=== PATIENT | male | born 1990 | race Caucasian/White ===

== ENCOUNTER 2017-06-30 13:03 | Emergency (ER) | payer OTHER ==
[2017-06-30 13:08] VITALS: BP 145/96; PULSE 95; RESP 18; TEMP 98.1
[2017-06-30] MEDS ORDERED: CLINDAMYCIN 150 MG CAP PO STA (13:22)
[2017-06-30] MEDS ORDERED: MORPHINE SULFATE 10 MG/ML SYRINGE IM STA (13:22)
--- NOTE | 2017-06-30 13:28 | ED ---
ENT HPI - General Chief complaint: Dental/Oral Stated complaint: facial swelling Time Seen by Provider: 06/30/17 13:10 Source: patient Mode of arrival: ambulatory Limitations: no limitations - History of Present Illness Initial comments: this is a 27-year-old male who presents him in [facility] for left-sided facial swelling and pain. He states that it started yesterday. He went to his dentist who stated that he had an infection and was placed on amoxicillin and told to take Motrin for pain. He states he woke up this morning and it seemed like the swelling and pain was worse or he decided come emergency department. He denies any fevers or chills. He states that he does have a cavity in the left upper teeth however can't have a told him to the infection is gone. Denies any difficult he was swallowing or breathing. No other complaints. - Related Data Previous Rx's Medication Instructions Recorded Levofloxacin [Levaquin] 500 mg PO DAILY #9 tab 10/04/16 Promethaz-Cod 6.25-10 mg/5 ml 5 ml PO Q6HR PRN #100 bottle 10/04/16 [Phenergan with Codeine] predniSONE 20 mg PO DAILY #3 tab 10/04/16 Clindamycin HCl [Cleocin] 450 mg PO Q6H #84 cap 06/30/17 HYDROcodone/APAP 5-325MG [[place] 1 tab PO Q6HR PRN #15 tab 06/30/17 5-325] Allergies Allergy/AdvReac Type Severity Reaction Status Date / Time risperidone [From Risperdal] Allergy Confusion Verified 06/30/17 13:08 Review of Systems ROS Statement: Those systems with pertinent positive or pertinent negative responses have been documented in the HPI. ROS Other: All systems not noted in ROS Statement are negative. Past Medical History Past Medical History: Asthma History of Any Multi-Drug Resistant Organisms: None Reported Past Surgical History: No Surgical Hx Reported Past Anesthesia/Blood Transfusion Reactions: No Reported Reaction Past Psychological History: Anxiety, Bipolar, Depression Smoking Status: Former smoker Past Alcohol Use History: Occasional Past Drug Use History: Marijuana - Past Family History Father Family Medical History: Chest Pain / Angina, COPD, Coronary Artery Disease (CAD ) (History of coronary artery disease with [place] and ended up in respiratory failure and passed at age 53. ) Additional Family Medical History / Comment(s): Father has history of major depressive disorder and osteoporosis. Mother Family Medical History: No Reported History (History of osteoporosis. Mother is 54 years old.) Sister(s) Family Medical History: No Reported History (Patient has sister with alcohol syndrome.) Brother(s) Family Medical History: No Reported History (He has one brother with no medical problems.) Daughter(s) Family Medical History: No Reported History (Patient has 2 children one is autistic.) General Exam - General Exam Comments Initial Comments: Constitutional: [Awake alert] [Appears comfortable] Head: [Normocephalic atraumatic] Eyes: [no conjunctival injection] [No scleral icterus] [EOMI] ENT: There is swelling along the left cheek with tenderness to palpation along the left cheek as well. Mild erythema, there is some gingival erythema around the left first molar with an associated Skylar. No abscess was palpated. Neck: [No JVD] [Supple] Heart: [Regular rate rhythm] [normal S1-S2] [no murmurs] Lungs: [Clear to auscultation bilaterally] [No wheezing] [No rales] Abdomen: [Soft] [nondistended] [nontender] Extremities: [Non edematous] [DP pulses intact] [Radial pulses intact] Neuro: [A&Ox3] [No focal neurologic deficits] Psych: [Appropriate mood and affect] Limitations: no limitations Course Vital Signs 06/30/17 13:06 Temperature 98.1 F Pulse Rate 95 Respiratory 18 Rate Blood Pressure 145/96 O2 Sat by Pulse 100 Oximetry Medical Decision Making - Medical Decision Making this is a 27-year-old male who presents emergency department for left-sided facial swelling. He appears to have facial cellulitis with associated gingivitis of the left first molar upper. The patient was given a dose of morphine were department with improvement in his pain. Going to send him home on clindamycin and [place] that he can use. He can follow-up with his dentist as needed. He can return emergency Department if he feels like the swelling is getting worse. Disposition Clinical Impression: Facial cellulitis Disposition: HOME SELF-CARE Condition: Stable Instructions: Dental Caries (ED), Periorbital Cellulitis in Adults (ED) Prescriptions: Clindamycin HCl [Cleocin] 450 mg PO Q6H #84 cap HYDROcodone/APAP 5-325MG [[place] 5-325] 1 tab PO Q6HR PRN #15 tab PRN Reason: Pain Referrals: Gold Maier MD [Primary Care Provider] - 1-2 days
== END 2017-06-30 13:45 | disposition home or self-care (01) ==
LOC: EC 13:03
DX: L03.211 Cellulitis of face (principal); K05.10 Chronic gingivitis, plaque induced; K02.9 Dental caries, unspecified; Z87.891 Personal history of nicotine dependence; Z88.8 Allergy status to other drugs, medicaments and biological substances
CPT/HCPCS: 99283; 96372; J2270

== ENCOUNTER 2017-08-10 16:43 | Emergency (ER) | payer OTHER ==
[2017-08-10 16:54] VITALS: RESP 18
[2017-08-10] MEDS ORDERED: diphenhydrAMINE 50 MG/ML 1 ML VIAL IVP STA (17:16)
[2017-08-10] MEDS ORDERED: ONDANSETRON 4 MG/2 ML VIAL IVP STA (17:16)
[2017-08-10] MEDS ORDERED: PANTOPRAZOLE 40 MG/10 ML VIAL IVP STA (17:16)
[2017-08-10] MEDS ORDERED: KETOROLAC 30 MG/ML 1 ML VIAL IVP STA (17:16)
[2017-08-10] MEDS ORDERED: SODIUM CHLORIDE 0.9% 1,000 ML IV STA ×2 (17:16)
[2017-08-10] MEDS ORDERED: MAG HYDROX/AL HYDROX/SIMETH 30 ML, HYOSCYAMINE ELIXIR 10 ML, CIMETIDINE HCL 300 MG, LID... PO STA ×4 (17:17)
--- NOTE | 2017-08-10 17:20 | ED ---
Abdominal Pain HPI - General Chief Complaint: Abdominal Pain Stated Complaint: asthma attack Time Seen by Provider: 08/10/17 17:06 Source: patient, RN notes reviewed, old records reviewed Mode of arrival: ambulatory Limitations: no limitations - History of Present Illness Initial Comments: Physical is a 27-year-old male presents emergency Department with multiple complaints, patient reports that over the past week he's had occasional episodes with difficulty breathing in the middle the night but then it seems to subside. Patient reports that seems to be fine at this time. Patient states that he over the past 3 days has been having severe nausea and vomiting. Patient states that he has some left upper quadrant abdominal pain as well. Denies any fever or chills. He reports that he try to eat[place] an hour ago and it came right back up. Patient also reports these symptoms and swelling over his right testicle been going on for a year but seems to be somewhat bigger over the past month. Patient states that occasionally is painful. - Related Data Home Medications Medication Instructions Recorded Confirmed Albuterol Sulfate [Proair Hfa] 1 - 2 puff INHALATION RT-Q6H PRN 08/10/17 Previous Rx's Medication Instructions Recorded Omeprazole 40 mg PO DAILY #20 capsule. 08/10/17 Ondansetron Odt [Zofran Odt] 4 mg PO Q8HR PRN #12 tab 08/10/17 Allergies Allergy/AdvReac Type Severity Reaction Status Date / Time risperidone [From Risperdal] Allergy Confusion Verified 08/10/17 18:39 Review of Systems ROS Statement: Those systems with pertinent positive or pertinent negative responses have been documented in the HPI. ROS Other: All systems not noted in ROS Statement are negative. Past Medical History Past Medical History: Asthma History of Any Multi-Drug Resistant Organisms: None Reported Past Surgical History: No Surgical Hx Reported Past Anesthesia/Blood Transfusion Reactions: No Reported Reaction Past Psychological History: Anxiety, Bipolar, Depression Smoking Status: Former smoker Past Alcohol Use History: Occasional Past Drug Use History: Marijuana - Past Family History Father Family Medical History: Chest Pain / Angina, COPD, Coronary Artery Disease (CAD ) (History of coronary artery disease with [place] and ended up in respiratory failure and passed at age 53. ) Additional Family Medical History / Comment(s): Father has history of major depressive disorder and osteoporosis. Mother Family Medical History: No Reported History (History of osteoporosis. Mother is 54 years old.) Sister(s) Family Medical History: No Reported History (Patient has sister with alcohol syndrome.) Brother(s) Family Medical History: No Reported History (He has one brother with no medical problems.) Daughter(s) Family Medical History: No Reported History (Patient has 2 children one is autistic.) General Exam - General Exam Comments Initial Comments: His is a 27-year-old male. No distress. Limitations: no limitations General appearance: alert, in no apparent distress Head exam: Present: atraumatic, normocephalic, normal inspection Eye exam: Present: normal appearance ENT exam: Present: normal exam, mucous membranes moist Neck exam: Present: normal inspection. Absent: tenderness, meningismus, lymphadenopathy Respiratory exam: Present: normal lung sounds bilaterally. Absent: respiratory distress, wheezes, rales, rhonchi, stridor Cardiovascular Exam: Present: regular rate, normal rhythm, normal heart sounds. Absent: systolic murmur, diastolic murmur, rubs, gallop, clicks GI/Abdominal exam: Present: soft, tenderness (LUQ pain), normal bowel sounds. Absent: distended, guarding, rebound, rigid exam: Present: scrotal swelling (minor swelling noted to left anterior testicular pole). Absent: normal inspection Extremities exam: Present: normal inspection, full ROM, normal capillary refill. Absent: tenderness, pedal edema, joint swelling, calf tenderness Back exam: Present: normal inspection, full ROM Neurological exam: Present: alert, oriented X3, CN II-XII intact Psychiatric exam: Present: normal affect, normal mood Skin exam: Present: warm, dry, intact, normal color. Absent: rash Course Vital Signs 08/10/17 16:50 Temperature 97.5 F L Pulse Rate 75 Respiratory 18 Rate Blood Pressure 118/76 O2 Sat by Pulse 97 Oximetry Medical Decision Making - Medical Decision Making 27-year-old male presents emergency department with multiple complaints including episodic epigastric abdominal pain, nausea and vomiting and occasional shortness of breath while sleeping. He has no shortness breath or chest pain at this time. Patient is given IV fluids and laboratory obtained. Patient's labwork was reviewed and unremarkable. Patient received a GI cocktail reports that his pain is feeling better at this time. He also does complain of some swelling over his left testicle. Patient ultrasound shows evidence of the left epididymal cyst which is been stable. No evidence of torsion. At this time patient is reevaluated states that he is feeling better. He will be discharged with nausea medicine and advised to follow-up with primary care provider. Discussed following up with urologist as well and regards epididymal cyst. Patient agrees to treatment plan will comply. Return parameters were discussed. - Lab Data Result diagrams: 08/10/17 17:30 08/10/17 17:30 Lab Results 08/10/17 08/10/17 08/10/17 Range/Units 17:30 17:30 17:30 WBC 12.6 H (3.8-10.6) k/uL RBC 5.56 (4.30-5.90) m/uL Hgb 16.4 (13.0-17.5) gm/dL Hct 47.9 (39.0-53.0) % MCV 86.1 (80.0-100.0) fL MCH 29.6 (25.0-35.0) pg MCHC 34.3 (31.0-37.0) g/dL RDW 12.2 (11.5-15.5) % Plt Count 275 (150-450) k/uL Neutrophils % 80 % Lymphocytes % 13 % Monocytes % 5 % Eosinophils % 2 % Basophils % 0 % Neutrophils # 10.1 H (1.3-7.7) k/uL Lymphocytes # 1.6 (1.0-4.8) k/uL Monocytes # 0.6 (0-1.0) k/uL Eosinophils # 0.2 (0-0.7) k/uL Basophils # 0.0 (0-0.2) k/uL PT 11.8 (9.0-12.0) sec INR 1.2 H (<1.2) APTT 25.6 (22.0-30.0) sec Sodium 144 (137-145) mmol/L Potassium 4.2 (3.5-5.1) mmol/L Chloride 102 (98-107) mmol/L Carbon Dioxide 27 (22-30) mmol/L Anion Gap 15 mmol/L BUN 11 (9-20) mg/dL Creatinine 0.92 (0.66-1.25) mg/dL Est GFR (MDRD) Af Amer >60 (>60 ml/min/1.73 sqM) Est GFR (MDRD) Non-Af >60 (>60 ml/min/1.73 sqM) Glucose 83 (74-99) mg/dL Calcium 10.0 (8.4-10.2) mg/dL Total Bilirubin 0.6 (0.2-1.3) mg/dL AST 30 (17-59) U/L ALT 29 (21-72) U/L Alkaline Phosphatase 69 (38-126) U/L Total Protein 8.6 H (6.3-8.2) g/dL Albumin 5.2 H (3.5-5.0) g/dL Amylase 34 (30-110) U/L Lipase 285 (23-300) U/L Urine Color Urine Appearance (Clear) Urine pH (5.0-8.0) Ur Specific [place] (1.001-1.035) Urine Protein (Negative) Urine Glucose (UA) (Negative) Urine Ketones (Negative) Urine Blood (Negative) Urine Nitrite (Negative) Urine Bilirubin (Negative) Urine Urobilinogen (<2.0) mg/dL Ur Leukocyte Esterase (Negative) Urine RBC (0-5) /hpf Urine WBC (0-5) /hpf Urine Mucus (None) /hpf 08/10/17 Range/Units 18:48 WBC (3.8-10.6) k/uL RBC (4.30-5.90) m/uL Hgb (13.0-17.5) gm/dL Hct (39.0-53.0) % MCV (80.0-100.0) fL MCH (25.0-35.0) pg MCHC (31.0-37.0) g/dL RDW (11.5-15.5) % Plt Count (150-450) k/uL Neutrophils % % Lymphocytes % % Monocytes % % Eosinophils % % Basophils % % Neutrophils # (1.3-7.7) k/uL Lymphocytes # (1.0-4.8) k/uL Monocytes # (0-1.0) k/uL Eosinophils # (0-0.7) k/uL Basophils # (0-0.2) k/uL PT (9.0-12.0) sec INR (<1.2) APTT (22.0-30.0) sec Sodium (137-145) mmol/L Potassium (3.5-5.1) mmol/L Chloride (98-107) mmol/L Carbon Dioxide (22-30) mmol/L Anion Gap mmol/L BUN (9-20) mg/dL Creatinine (0.66-1.25) mg/dL Est GFR (MDRD) Af Amer (>60 ml/min/1.73 sqM) Est GFR (MDRD) Non-Af (>60 ml/min/1.73 sqM) Glucose (74-99) mg/dL Calcium (8.4-10.2) mg/dL Total Bilirubin (0.2-1.3) mg/dL AST (17-59) U/L ALT (21-72) U/L Alkaline Phosphatase (38-126) U/L Total Protein (6.3-8.2) g/dL Albumin (3.5-5.0) g/dL Amylase (30-110) U/L Lipase (23-300) U/L Urine Color Yellow Urine Appearance Clear (Clear) Urine pH 8.5 H (5.0-8.0) Ur Specific [place] 1.023 (1.001-1.035) Urine Protein 1+ H (Negative) Urine Glucose (UA) Negative (Negative) Urine Ketones Negative (Negative) Urine Blood Negative (Negative) Urine Nitrite Negative (Negative) Urine Bilirubin Negative (Negative) Urine Urobilinogen <2.0 (<2.0) mg/dL Ur Leukocyte Esterase Negative (Negative) Urine RBC <1 (0-5) /hpf Urine WBC 1 (0-5) /hpf Urine Mucus Rare H (None) /hpf - Radiology Data Radiology results: report reviewed Testicular torsion is not evident. Evidence of bilateral hydroceles. Evidence of left epididymal cyst. Left epididymal cyst measures 1.2 x 1.5 x 1.4 cm. KUB was reviewed and negative for any obstructive bowel gas pattern. Disposition Clinical Impression: Epididymal cyst, Gastritis, Nausea Disposition: HOME SELF-CARE Condition: Good Instructions: Gastritis (ED) Additional Instructions: Patient advised to follow-up with urologist. Patient advised to have a clear liquid diet for the next 2 days. Return to emergency department if any alarming signs or symptoms occur. Follow-up with primary Care provider as well. Prescriptions: Omeprazole 40 mg PO DAILY #20 capsule. Ondansetron Odt [Zofran Odt] 4 mg PO Q8HR PRN #12 tab PRN Reason: Nausea Referrals: Gold Maier MD [Primary Care Provider] - 1-2 days Martinez Webb MD [STAFF PHYSICIAN] - 1-2 days Time of Disposition: 19:11
[2017-08-10 17:41] LABS: Basophils % (A) 0 %; CH 30.2; CHCM 35.2; Eosinophils # (A) 0.2 k/uL (0-0.7); Eosinophils % (A) 2 %; HCT 47.9 % (39.0-53.0); HDW 2.56; HGB 16.4 gm/dL (13.0-17.5); Luc # (Auto) 0.14; Luc % (Auto) 1; Lymphocytes # (A) 1.6 k/uL (1.0-4.8); Lymphocytes % (A) 13 %; MCH 29.6 pg (25.0-35.0); MCHC 34.3 g/dL (31.0-37.0); MCV 86.1 fL (80.0-100.0); Mean Platelet Volume 6.9; Monocytes # (A) 0.6 k/uL (0-1.0); Monocytes % (A) 5 %; Neutrophils # (A) 10.1 k/uL (1.3-7.7); Neutrophils % (A) 80 %; RBC 5.56 m/uL (4.30-5.90); RDW 12.2 % (11.5-15.5); WBC 12.6 k/uL (3.8-10.6); WBC (Perox) 11.83
[2017-08-10 17:56] LABS: INR 1.2 (<1.2); Partial Thromboplastin Time 25.6 sec (22.0-30.0); Prothrombin Time 11.8 sec (9.0-12.0)
[2017-08-10 18:10] LABS: ALT 29 U/L (21-72); AST 30 U/L (17-59); Alkaline Phosphatase 69 U/L (38-126); Amylase 34 U/L (30-110); Anion Gap 15 mmol/L; Blood Urea Nitrogen 11 mg/dL (9-20); Carbon Dioxide 27 mmol/L (22-30); Chloride 102 mmol/L (98-107); Glucose 83 mg/dL (74-99); Non-African American GFR(MDRD) >60 (>60 ml/min/1.73 sqM); Potassium 4.2 mmol/L (3.5-5.1); Sodium 144 mmol/L (137-145); Total Bilirubin 0.6 mg/dL (0.2-1.3); Total Protein 8.6 g/dL (6.3-8.2)
--- NOTE | 2017-08-10 18:11 | XR ---
Abdomen HISTORY: Pain Frontal view of the abdomen on 2 images No comparisons Lung bases are clear. No bowel obstruction or pneumoperitoneum evident. No evident pathologic calcifi cation IMPRESSION: Nonobstructive bowel gas pattern
--- NOTE | 2017-08-10 18:47 | US ---
EXAMINATION TYPE: US scrotum with doppler. Grayscale and color Doppler Duplex imaging performed of t he scrotum. DATE OF EXAM: 08/10/2017 COMPARISON: Previous dated 07/15/2016 CLINICAL HISTORY: Pain. Pain x 1 year EXAM MEASUREMENTS: TESTICLES: Right Testicle: 3.7 x 2.2 x 4.8 cm Left Testicle: 4.7x 2.5 x 4.5 cm EPIDIDYMIS HEAD: Right Epididymis: 0.6 x 0.6 x0.9 cm Left Epididymis: 0.7 x 0.9 x 0.8 cm Doppler performed to assess for testicular vascularity; good bilateral color flow and waveforms are s een. There is no evidence of testicular torsion. Presence of hydroceles: Yes bilateral Presence of varicoceles: No Left epididymal cyst seen measuring 1.2 x 1.5 x 1.4cm Bilateral normal color doppler flow visualized IMPRESSION: Testicular torsion is not evident. Bilateral hydroceles. Left epididymal cyst.
[2017-08-10 19:00] LABS: Appearance,Urine Clear (Clear); Bilirubin,Urine Negative (Negative); Glucose,Urine (UA) Negative (Negative); Ketones,Urine Negative (Negative); Leukocyte Esterase,Urine Negative (Negative); Mucus,Urine Rare /hpf; Nitrite,Urine Negative (Negative); PH, Urine 8.5 (5.0-8.0); Particle Count 3660; Protein,Urine 1+ (Negative); RBC,Urine <1 /hpf (0-5); Specific Gravity,Urine 1.023 (1.001-1.035); UA Billing (MACRO vs. MICRO) MICRO; Urobilinogen,Urine <2.0 mg/dL (<2.0); WBC,Urine 1 /hpf (0-5)
[2017-08-10] MEDS ORDERED: ONDANSETRON 4 MG ODT STARTER PACK 2 TAB BTL PO STA (19:11)
[2017-08-10 19:21] VITALS: BP 119/56; PULSE 67; TEMP 98.2
== END 2017-08-10 19:21 | disposition home or self-care (01) ==
LOC: EC 16:43
DX: K29.70 Gastritis, unspecified, without bleeding (principal); N50.3 Cyst of epididymis; Z87.891 Personal history of nicotine dependence; Z88.8 Allergy status to other drugs, medicaments and biological substances
CPT/HCPCS: 99285 ×2; 96374 ×2; 96375 ×4; 96361 ×3; 36415; 80053; 82150; 83690; 85025; 85610; 85730; 81001; 74000; 93975; 76870; J1200; J2405; J1885; S0119; C9113

== ENCOUNTER 2017-12-06 10:42 | Emergency (ER) | payer OTHER ==
[2017-12-06 11:06] VITALS: TEMP 97
--- NOTE | 2017-12-06 12:05 | ED ---
General Adult HPI - General Chief complaint: Dental/Oral Stated complaint: dental abscess Time Seen by Provider: 12/06/17 11:43 Source: patient, RN notes reviewed Mode of arrival: ambulatory Limitations: no limitations - History of Present Illness Initial comments: 27-year-old male presents emergency Department chief complaint of left-sided pain. Patient has had this dental pain for the past few days. He is on amoxicillin however it seems that it's getting worse. He states he is getting drainage from the left upper gumline. He denies any fever chills he denies any pain radiates into the neck. He denies any difficulty opening or closing the mouth. He states that this is happening in the past and he normally needs a stronger antibiotic. He states that he is here because Motrin and the current antibiotic do not seem to be helping. He denies any other symptoms with this. He denies a fever or chills. Patient denies any recent fever, chills, shortness of breath, chest pain, back pain, abdominal pain, nausea vomiting, numbness or tingling, dysuria or hematuria, constipation or diarrhea, headaches or visual changes, or any other current symptoms. - Related Data Previous Rx's Medication Instructions Recorded Clindamycin [Cleocin] 450 mg PO Q8HR #90 capsule 12/06/17 traMADol HCl [Ultram] 50 mg PO Q6H PRN #20 tab 12/06/17 Allergies Allergy/AdvReac Type Severity Reaction Status Date / Time risperidone [From Risperdal] Allergy Confusion Verified 12/06/17 11:44 Review of Systems ROS Statement: Those systems with pertinent positive or pertinent negative responses have been documented in the HPI. ROS Other: All systems not noted in ROS Statement are negative. Past Medical History Past Medical History: Asthma History of Any Multi-Drug Resistant Organisms: None Reported Past Surgical History: No Surgical Hx Reported Past Anesthesia/Blood Transfusion Reactions: No Reported Reaction Past Psychological History: Anxiety, Bipolar, Depression Smoking Status: Former smoker Past Alcohol Use History: Occasional Past Drug Use History: Marijuana - Past Family History Father Family Medical History: Chest Pain / Angina, COPD, Coronary Artery Disease (CAD ) (History of coronary artery disease with [place] and ended up in respiratory failure and passed at age 53. ) Additional Family Medical History / Comment(s): Father has history of major depressive disorder and osteoporosis. Mother Family Medical History: No Reported History (History of osteoporosis. Mother is 54 years old.) Sister(s) Family Medical History: No Reported History (Patient has sister with alcohol syndrome.) Brother(s) Family Medical History: No Reported History (He has one brother with no medical problems.) Daughter(s) Family Medical History: No Reported History (Patient has 2 children one is autistic.) General Exam Limitations: no limitations General appearance: alert, in no apparent distress Head exam: Present: atraumatic, normocephalic, normal inspection Eye exam: Present: normal appearance, PERRL, EOMI. Absent: scleral icterus, conjunctival injection, periorbital swelling ENT exam: Present: mucous membranes moist, other (Patient does appear to have a dental abscess to the upper left jaw above tooth #13 it is actively draining.) Neck exam: Present: normal inspection. Absent: tenderness, meningismus, lymphadenopathy Respiratory exam: Present: normal lung sounds bilaterally. Absent: respiratory distress, wheezes, rales, rhonchi, stridor Cardiovascular Exam: Present: regular rate, normal rhythm, normal heart sounds. Absent: systolic murmur, diastolic murmur, rubs, gallop, clicks Neurological exam: Present: alert, oriented X3 Psychiatric exam: Present: normal affect, normal mood Skin exam: Present: warm, dry, intact, normal color. Absent: rash Course Vital Signs 12/06/17 11:04 Temperature 97.0 F L Pulse Rate 80 Respiratory 16 Rate Blood Pressure 130/85 O2 Sat by Pulse 99 Oximetry Medical Decision Making - Medical Decision Making 27-year-old male presents emergency department with chief complaint of left- sided dental pain. At this time we did discuss continuing Motrin Tylenol for pain control. We will switch him to clindamycin as well as stronger pain medication. We did discuss return parameters and follow-up and all questions. Patient family stated the Felipe management this plan. They will be discharged home. Disposition Clinical Impression: Dental abscess Disposition: HOME SELF-CARE Condition: Stable Instructions: Dental Abscess (ED) Additional Instructions: Please use medication as discussed. Please follow up with family doctor if symptoms have not improved over the next two days. Please return to the emergency room if your symptoms increase or worsen or for any other concerns. Prescriptions: Clindamycin [Cleocin] 450 mg PO Q8HR #90 capsule traMADol HCl [Ultram] 50 mg PO Q6H PRN #20 tab PRN Reason: Pain Referrals: Gold Maier MD [Primary Care Provider] - 1-2 days Time of Disposition: 12:04
[2017-12-06 12:14] VITALS: BP 153/82; PULSE 76; RESP 18
== END 2017-12-06 12:15 | disposition home or self-care (01) ==
LOC: EC 10:42
DX: K04.7 Periapical abscess without sinus (principal); Z87.891 Personal history of nicotine dependence; Z88.8 Allergy status to other drugs, medicaments and biological substances
CPT/HCPCS: 99282

== ENCOUNTER 2017-12-18 06:41 | Emergency (ER) | payer OTHER ==
--- NOTE | 2017-12-18 07:26 | XR ---
EXAMINATION TYPE: XR elbow complete RT , 3 VIEWS DATE OF EXAM ORDERED: 12/18/2017 HISTORY: Pain. COMPARISON: None. FINDINGS: No fracture, dislocation or joint effusion is identified. IMPRESSION: NO ACUTE OSSEOUS LESION.
--- NOTE | 2017-12-18 07:27 | XR ---
EXAMINATION TYPE: XR lumbar spine 2 or 3V , 3 VIEWS DATE OF EXAM ORDERED: 12/18/2017 HISTORY: Pain. COMPARISON: None. FINDINGS: Vertebral body height and alignment are maintained. There is no spondylolysis or spondylol isthesis. No fractures are seen. The pedicles are intact. IMPRESSION: NO ACUTE OSSEOUS LESION.
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
[2017-12-18 09:26] VITALS: BP 128/81; PULSE 75; RESP 16; TEMP 98
== END 2017-12-18 09:15 | disposition home or self-care (01) ==
LOC: EC 06:41
DX: S50.01XA Contusion of right elbow, initial encounter (principal); S30.0XXA Contusion of lower back and pelvis, initial encounter; S02.5XXA Fracture of tooth (traumatic), initial encounter for closed fracture; R40.2412 Glasgow coma scale score 13-15, at arrival to emergency department; F17.200 Nicotine dependence, unspecified, uncomplicated; Z88.8 Allergy status to other drugs, medicaments and biological substances; V18.4XXA Pedal cycle driver injured in noncollision transport accident in traffic accident, initial encounter
CPT/HCPCS: 72100; 99283

== ENCOUNTER 2018-10-25 16:35 | Emergency (ER) | payer OTHER ==
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
--- NOTE | 2018-10-25 18:47 | XR ---
EXAMINATION TYPE: XR chest 2V DATE OF EXAM: 10/25/2018 COMPARISON: 10/13/2016 HISTORY: Chest pain TECHNIQUE: Frontal and lateral views of the chest are obtained. FINDINGS: Heart and mediastinum are normal lungs are clear. Diaphragm is normal. Bony thorax appears normal. IMPRESSION: Normal chest. No change.
[2018-10-25] MEDS ORDERED: ACETAMINOPHEN TAB 325 MG TAB PO STA (19:24)
[2018-10-25] MEDS ORDERED: ONDANSETRON ODT 4 MG TAB PO STA (19:24)
[2018-10-25 19:57] VITALS: BP 140/95; PULSE 85; RESP 16; TEMP 97.4
== END 2018-10-25 20:22 | disposition home or self-care (01) ==
LOC: EC 16:35
DX: R05 Cough (principal); R06.02 Shortness of breath; R07.89 Other chest pain; R06.2 Wheezing; Z87.891 Personal history of nicotine dependence; Z88.8 Allergy status to other drugs, medicaments and biological substances
CPT/HCPCS: 71046; 93005; 99285

== ENCOUNTER 2019-12-07 17:45 | Observation (INO) | payer OTHER ==
[2019-12-07] MEDS ORDERED: IPRATROPIUM 0.5 MG/2.5 ML NEBU INHALATION STA (18:06)
[2019-12-07] MEDS ORDERED: ALBUTEROL NEBULIZED 2.5 MG/3 ML INHALATION STA (18:06)
[2019-12-07] MEDS ORDERED: DEXAMETHASONE SOD PHOSPHATE 10 MG/ML 1 ML VIAL IM STA (18:07)
[2019-12-07 18:48] VITALS: RESP 18
--- NOTE | 2019-12-07 19:28 | XR ---
EXAMINATION: XR chest 2V DATE AND TIME: 12/07/2019 6:48 PM CLINICAL INDICATION: PHH; difficulty breathing TECHNIQUE: Departmental protocol COMPARISON: 10/25/2018 FINDINGS: The lungs are clear. The pleural spaces are negative. The cardiac silhouette is not enlarged. The remainder of the mediastinal silhouette is unremarkable. The skeletal structures and soft tissues are negative for acute findings. IMPRESSION: NO ACUTE PROCESS.
[2019-12-07] MEDS ORDERED: IPRATROPIUM-ALBUTEROL 3 ML NEB INHALATION PRN (20:52)
[2019-12-07] MEDS ORDERED: AZITHROMYCIN 500 MG TAB PO SCH (21:00)
[2019-12-07 21:22] LABS: ALT 23 U/L (4-49); AST 38 U/L (17-59); African American GFR (CKD) >90 (>60 ml/min/1.73 sqM); Albumin 4.7 g/dL (3.5-5.0); Alkaline Phosphatase 63 U/L (38-126); Anion Gap 8 mmol/L; Blood Urea Nitrogen 8 mg/dL (9-20); Calcium 9.7 mg/dL (8.4-10.2); Carbon Dioxide 24 mmol/L (22-30); Chloride 107 mmol/L (98-107); Glucose 100 mg/dL (74-99); Non-African American GFR(CKD) >90 (>60 ml/min/1.73 sqM); Sodium 139 mmol/L (137-145); Total Bilirubin 0.7 mg/dL (0.2-1.3); Total Protein 7.8 g/dL (6.3-8.2)
[2019-12-07 21:42] VITALS: BP 127/78; PULSE 69; TEMP 97.9
--- NOTE | 2019-12-07 22:18 | ED ---
General Adult HPI - General Chief complaint: Shortness of Breath Stated complaint: SHANTI Time Seen by Provider: 12/07/19 17:56 Source: patient, RN notes reviewed, old records reviewed Mode of arrival: ambulatory Limitations: no limitations - History of Present Illness Initial comments: 29-year-old male history of asthma presenting with 1 week of increasing cough and dyspnea. Cough productive of dark yellow sputum. Patient states he's had multiple admissions and has significant asthma. Patient is currently out of his albuterol. He denies lower extremity pain or swelling. Denies fever or chills. He has had URI symptoms for approximately one week. Denies central chest pain. - Related Data Home Medications Medication Instructions Recorded Confirmed No Known Home Medications 12/07/19 12/07/19 Allergies Allergy/AdvReac Type Severity Reaction Status Date / Time risperidone [From Risperdal] Allergy Confusion/S Verified 12/07/19 21:47 EIZURES Review of Systems ROS Statement: Those systems with pertinent positive or pertinent negative responses have been documented in the HPI. ROS Other: All systems not noted in ROS Statement are negative. Past Medical History Past Medical History: Asthma History of Any Multi-Drug Resistant Organisms: None Reported Past Surgical History: No Surgical Hx Reported Past Anesthesia/Blood Transfusion Reactions: No Reported Reaction Past Psychological History: Anxiety, Bipolar, Depression Smoking Status: Current every day smoker Past Alcohol Use History: Occasional Additional Past Alcohol Use History / Comment(s): Patient was a smoker of 2 pack s per day for 13 years . He does smoke marijuana at least one joint per day area he also drinks beer every other day. . Past alcohol use stopped drinking 6 months ago. Past Drug Use History: Marijuana - Past Family History Father Family Medical History: Chest Pain / Angina, COPD, Coronary Artery Disease (CAD) Additional Family Medical History / Comment(s): Father has history of major depressive disorder and osteoporosis. Mother Family Medical History: No Reported History Sister(s) Family Medical History: No Reported History Brother(s) Family Medical History: No Reported History Daughter(s) Family Medical History: No Reported History General Exam Limitations: no limitations General appearance: alert, in no apparent distress Head exam: Present: atraumatic, normocephalic Eye exam: Present: normal appearance, PERRL ENT exam: Present: normal exam Neck exam: Present: normal inspection. Absent: tenderness, meningismus Respiratory exam: Present: respiratory distress, wheezes, rhonchi, decreased breath sounds Cardiovascular Exam: Present: regular rate, normal rhythm GI/Abdominal exam: Present: soft. Absent: distended, guarding Extremities exam: Present: normal inspection, normal capillary refill. Absent: pedal edema Neurological exam: Present: alert, oriented X3 Psychiatric exam: Present: normal affect, normal mood Skin exam: Present: warm, dry, intact. Absent: cyanosis, diaphoretic Course Vital Signs 12/07/19 12/07/19 12/07/19 17:47 18:13 18:25 Temperature 99.0 F Pulse Rate 91 88 Respiratory 16 20 Rate Blood Pressure 131/75 O2 Sat by Pulse 99 Oximetry 12/07/19 12/07/19 12/07/19 18:47 19:34 21:07 Temperature 98.2 F Pulse Rate 100 87 91 Respiratory 18 18 18 Rate Blood Pressure 119/72 139/74 O2 Sat by Pulse 98 97 Oximetry Medical Decision Making - Medical Decision Making Chest x-ray negative for focal pneumonia. After albuterol, steroids, patient has persistent wheezing and rhonchi throughout. Mild respiratory distress. He will be kept in observation for IV steroids, and albuterol. Case is discussed with the admitting physician who will admit, IV will be established, CBC and CMP will be obtained these are pending. - Lab Data Result diagrams: 12/07/19 20:51 Lab Results 12/07/19 Range/Units 20:51 Sodium 139 (137-145) mmol/L Potassium 4.0 (3.5-5.1) mmol/L Chloride 107 (98-107) mmol/L Carbon Dioxide 24 (22-30) mmol/L Anion Gap 8 mmol/L BUN 8 L (9-20) mg/dL Creatinine 0.77 (0.66-1.25) mg/dL Est GFR (CKD-EPI)AfAm >90 (>60 ml/min/1.73 sqM) Est GFR (CKD-EPI)NonAf >90 (>60 ml/min/1.73 sqM) Glucose 100 H (74-99) mg/dL Calcium 9.7 (8.4-10.2) mg/dL Total Bilirubin 0.7 (0.2-1.3) mg/dL AST 38 (17-59) U/L ALT 23 (4-49) U/L Alkaline Phosphatase 63 (38-126) U/L Total Protein 7.8 (6.3-8.2) g/dL Albumin 4.7 (3.5-5.0) g/dL Disposition Clinical Impression: Asthma with exacerbation Disposition: ADMITTED IP TO THIS HOSP Condition: Stable Is patient prescribed a controlled substance at d/c from ED?: No Decision to Admit Reason: Admit from EC
[2019-12-07] MEDS ORDERED: ZOLPIDEM 5 MG TAB PO STA (22:42)
[2019-12-07 23:04] LABS: Basophils % (A) 0 %; Eosinophils # (A) 0.1 k/uL (0-0.7); Eosinophils % (A) 1 %; HCT 43.3 % (39.0-53.0); HGB 14.7 gm/dL (13.0-17.5); Lymphocytes # (A) 0.8 k/uL (1.0-4.8); Lymphocytes % (A) 8 %; MCH 29.2 pg (25.0-35.0); MCHC 34.1 g/dL (31.0-37.0); MCV 85.7 fL (80.0-100.0); Mean Platelet Volume 8.3; Monocytes # (A) 0.2 k/uL (0-1.0); Monocytes % (A) 2 %; Neutrophils # (A) 8.6 k/uL (1.3-7.7); Neutrophils % (A) 87 %; Platelet Count 320 k/uL (150-450); RBC 5.05 m/uL (4.30-5.90); RDW 12.1 % (11.5-15.5); WBC 9.9 k/uL (3.8-10.6)
[2019-12-08] MEDS ORDERED: methylPREDNISolone SOD SUCCI 125 MG/2 ML VIAL IV SCH
--- NOTE | 2019-12-08 06:19 | HP ---
HISTORY AND PHYSICAL This is a combined history and physical and discharge summary. CHIEF COMPLAINT: Shortness of breath. HISTORY OF PRESENT ILLNESS: This 29-year-old gentleman with a past medical history of multiple medical problems including history of asthma, history of anxiety, bipolar depression, being followed Dr. Rodas in the outpatient setting was complaining of increasing shortness of breath with the shortness of breath going on for several weeks. Apparently the patient has increased shortness of breath especially at night time. Patient wakes up and then has significant shortness of breath and cough and also the patient admitted for further evaluation. There is no history of any fever, rigors. No history of headache, loss of consciousness or seizures at this time. PAST MEDICAL HISTORY: Anxiety, bipolar, depression, history of GERD, history of asthma. MEDICATIONS: Home medications are none. ALLERGIES: RISPERDAL. FAMILY HISTORY: History of COPD, history of CAD, history of depression and osteoporosis. SOCIAL HISTORY: History of alcohol, THC, smoking daily on a daily basis. REVIEW OF SYSTEMS: ENT: No diminished hearing or diminished vision. CARDIOVASCULAR SYSTEM: As mentioned earlier. RESPIRATORY SYSTEM: As mentioned earlier. GI: As mentioned earlier. : No dysuria. NERVOUS SYSTEM: No numbness or weakness. ALLERGY/IMMUNOLOGY: Asthma. MUSCULOSKELETAL: As mentioned earlier. HEMATOLOGY/ONCOLOGY: Anemia. ENDOCRINE : No history of diabetes or hypothyroidism. CONSTITUTIONAL: As mentioned earlier. DERMATOLOGY: Negative. RHEUMATOLOGY: Negative. PSYCHIATRY: As mentioned earlier. PHYSICAL EXAMINATION: The patient is alert and oriented x3. Pulse 91, blood pressure 139/74, respiration 18, temperature 98.2, pulse ox 97% on room air. HEENT: Conjunctivae normal. NECK: No jugular venous distention. CARDIOVASCULAR: S1, S2 muffled. RESPIRATORY: Breath sounds diminished at the bases. Bilateral scattered rhonchi and crackles. ABDOMEN: Soft, nontender. No mass palpable. LEGS: No edema, no swelling. NERVOUS SYSTEM: Higher function as mentioned. Moves all 4 limbs. No focal motor or sensory deficits. LYMPHATICS: No lymphadenopathy of the neck, axillae or groin. SKIN: No ulcer, rash or bleeding. JOINTS: No active deforming arthropathy. LABS: CBC within normal limits and BUN is 8. Glucose is 100. Influenza is negative. ASSESSMENT: 1. Bronchial asthma acute exacerbation of chronic persistent asthma. 2. Possible gastroesophageal reflux disease. 3. Anxiety 4. History of anxiety, bipolar, depression. 5. History of continued nicotine dependence. 6. History of THC. RECOMMENDATIONS AND DISCUSSION: This 29-year-old gentleman who was admitted with multiple complex medical issues, I recommend bronchodilators and the treatment for GERD in the form of Protonix. I would also recommend a small cessation of the THC and continue the home medications, but however the patient left the hospital AGAINST MEDICAL ADVICE shortly after I had seen the patient and made some recommendations. Please refer to staff notes for further details. Prognosis remains extremely guarded because of the patient's noncompliance. A copy of dictation forwarded to Dr. Rodas, who is the primary physician. MMODL / IJN: [id number] / MTDRainer
[2019-12-08] MEDS ORDERED: IPRATROPIUM-ALBUTEROL 3 ML NEB INHALATION SCH (08:00)
== END 2019-12-07 23:00 | disposition home or self-care (01) ==
LOC: EC 17:45 → 1SOBS 20:53
PROVIDERS: ADMIT Hospitalist; ATTEND Hospitalist
DX: J45.901 Unspecified asthma with (acute) exacerbation (principal); F31.9 Bipolar disorder, unspecified; F41.9 Anxiety disorder, unspecified; F17.210 Nicotine dependence, cigarettes, uncomplicated; Z88.8 Allergy status to other drugs, medicaments and biological substances; Z82.49 Family history of ischemic heart disease and other diseases of the circulatory system; Z82.5 Family history of asthma and other chronic lower respiratory diseases; Z81.8 Family history of other mental and behavioral disorders; Z82.62 Family history of osteoporosis
CPT/HCPCS: 96372; 99285; 94640; 80053; 85025; 87502; 71046; G0378; J1100

== ENCOUNTER 2020-03-28 09:38 | Emergency (ER) | payer OTHER ==
[2020-03-28] MEDS ORDERED: FAMOTIDINE 20 MG/2 ML VIAL IV STA (10:05)
[2020-03-28] MEDS ORDERED: SODIUM CHLORIDE 0.9% 1,000 ML IV STA (10:05)
[2020-03-28] MEDS ORDERED: MAG HYDROX/AL HYDROX/SIMETH 30 ML, HYOSCYAMINE ELIXIR 10 ML, LIDOCAINE VISCOUS 2% 10 ML PO STA ×3 (10:05)
[2020-03-28 10:23] LABS: Basophils % (A) 0 %; Eosinophils # (A) 0.4 k/uL (0-0.7); Eosinophils % (A) 3 %; HCT 43.5 % (39.0-53.0); HGB 14.3 gm/dL (13.0-17.5); Lymphocytes # (A) 1.8 k/uL (1.0-4.8); Lymphocytes % (A) 14 %; MCH 28.3 pg (25.0-35.0); MCHC 32.9 g/dL (31.0-37.0); Monocytes # (A) 0.9 k/uL (0-1.0); Monocytes % (A) 7 %; Neutrophils # (A) 9.8 k/uL (1.3-7.7); Neutrophils % (A) 74 %; Platelet Count 256 k/uL (150-450); RBC 5.05 m/uL (4.30-5.90); RDW 12.7 % (11.5-15.5); WBC 13.3 k/uL (3.8-10.6)
--- NOTE | 2020-03-28 10:30 | ED ---
General Adult HPI - General Chief complaint: Abdominal Pain Stated complaint: Upper abd/chest pain Time Seen by Provider: 03/28/20 09:56 Source: patient, RN notes reviewed Mode of arrival: ambulatory Limitations: no limitations - History of Present Illness Initial comments: 29-year-old male with a past medical history of asthma presents to the emergency department for a chief complaint of upper abdominal pain. Patient states that he got off work about 6 hours ago and ate a sandwich. Patient states he had some slight discomfort at that time. Patient states he then drank a full bottle of water and went to bed. He states he woke up about an hour ago and had significant upper abdominal pain. States it feels like he has a sandwich stuck in the area with pressure. It is making him nauseous but denies vomiting.Patient has no other complaints at this time including shortness of breath, chest pain, headache, or visual changes. - Related Data Home Medications Medication Instructions Recorded Confirmed Ascorbic Acid [Vitamin C] 500 mg PO DAILY 03/28/20 03/28/20 Ibuprofen [Motrin] 800 mg PO Q8H PRN 03/28/20 03/28/20 Multivit-Min/Folic/Vit K/Lycop 1 tab PO DAILY 03/28/20 03/28/20 [Men's Multivitamin Tablet] Turmeric Root Extract [Turmeric] 500 mg PO DAILY 03/28/20 03/28/20 Allergies Allergy/AdvReac Type Severity Reaction Status Date / Time risperidone [From Risperdal] Allergy Confusion/S Verified 03/28/20 11:15 EIZURES Review of Systems ROS Statement: Those systems with pertinent positive or pertinent negative responses have been documented in the HPI. ROS Other: All systems not noted in ROS Statement are negative. Past Medical History Past Medical History: Asthma History of Any Multi-Drug Resistant Organisms: None Reported Past Surgical History: No Surgical Hx Reported Past Anesthesia/Blood Transfusion Reactions: No Reported Reaction Past Psychological History: Anxiety, Bipolar, Depression Smoking Status: Current every day smoker Past Alcohol Use History: Occasional Past Drug Use History: Marijuana - Past Family History Father Family Medical History: Chest Pain / Angina, COPD, Coronary Artery Disease (CAD) Additional Family Medical History / Comment(s): Father has history of major depressive disorder and osteoporosis. Mother Family Medical History: No Reported History Sister(s) Family Medical History: No Reported History Brother(s) Family Medical History: No Reported History Daughter(s) Family Medical History: No Reported History General Exam Limitations: no limitations General appearance: alert, in no apparent distress Head exam: Present: atraumatic, normocephalic, normal inspection Eye exam: Present: normal appearance, PERRL, EOMI. Absent: scleral icterus, conjunctival injection, periorbital swelling ENT exam: Present: normal exam, mucous membranes moist Neck exam: Present: normal inspection, full ROM. Absent: tenderness, meningismus, lymphadenopathy Respiratory exam: Present: normal lung sounds bilaterally. Absent: respiratory distress, wheezes, rales, rhonchi, stridor Cardiovascular Exam: Present: regular rate, normal rhythm, normal heart sounds. Absent: systolic murmur, diastolic murmur, rubs, gallop, clicks GI/Abdominal exam: Present: soft, tenderness (tenderness epigastric area), normal bowel sounds. Absent: distended, guarding, rebound, rigid Expanded GI/Abdominal exam: Present: Montiel's sign Course Vital Signs 03/28/20 09:43 Temperature 98.2 F Pulse Rate 71 Respiratory 18 Rate Blood Pressure 152/82 O2 Sat by Pulse 96 Oximetry EKG Findings - EKG Comments: EKG Findings:: EKG shows a normal sinus rhythm with a ventricular rate of 70, NC interval 158, QTC 403 Medical Decision Making - Medical Decision Making Vitals are stable. HPI and physical exam as documented. Pain is reproducible to palpation of the epigastric and right upper quadrant areas. CBC did show mild cytosis. CMP is unremarkable. Lipase of 370 is noted. However this is not 3 times normal limit elevation. X-ray KUB shows an obstructive bowel gas pattern. Gallbladder ultrasound shows no sonographic evidence of acute cholecystitis. However the patient complains of a positive sonographic Montiel sign and there is a long elongation of the gallbladder that can be seen and chr onic biliary dyskinesia. Patient was given pain medication and had significant improvement in pain. At this time patient is stable for follow-up outpatient with surgery. He will return here for any worsening symptoms. - Lab Data Result diagrams: 03/28/20 10:03 03/28/20 10:03 Lab Results 03/28/20 03/28/20 03/28/20 Range/Units 10:03 10:03 10:25 WBC 13.3 H (3.8-10.6) k/uL RBC 5.05 (4.30-5.90) m/uL Hgb 14.3 (13.0-17.5) gm/dL Hct 43.5 (39.0-53.0) % MCV 86.0 (80.0-100.0) fL MCH 28.3 (25.0-35.0) pg MCHC 32.9 (31.0-37.0) g/dL RDW 12.7 (11.5-15.5) % Plt Count 256 (150-450) k/uL Neutrophils % 74 % Lymphocytes % 14 % Monocytes % 7 % Eosinophils % 3 % Basophils % 0 % Neutrophils # 9.8 H (1.3-7.7) k/uL Lymphocytes # 1.8 (1.0-4.8) k/uL Monocytes # 0.9 (0-1.0) k/uL Eosinophils # 0.4 (0-0.7) k/uL Basophils # 0.0 (0-0.2) k/uL Sodium 137 (137-145) mmol/L Potassium 4.2 (3.5-5.1) mmol/L Chloride 107 (98-107) mmol/L Carbon Dioxide 25 (22-30) mmol/L Anion Gap 5 mmol/L BUN 16 (9-20) mg/dL Creatinine 0.76 (0.66-1.25) mg/dL Est GFR (CKD-EPI)AfAm >90 (>60 ml/min/1.73 sqM) Est GFR (CKD-EPI)NonAf >90 (>60 ml/min/1.73 sqM) Glucose 85 (74-99) mg/dL Calcium 9.3 (8.4-10.2) mg/dL Total Bilirubin 0.2 (0.2-1.3) mg/dL AST 24 (17-59) U/L ALT 21 (4-49) U/L Alkaline Phosphatase 50 (38-126) U/L Total Protein 7.1 (6.3-8.2) g/dL Albumin 4.3 (3.5-5.0) g/dL Amylase 33 (30-110) U/L Lipase 370 H (23-300) U/L Urine Color Light Yellow Urine Appearance Clear (Clear) Urine pH 7.0 (5.0-8.0) Ur Specific [place] 1.017 (1.001-1.035) Urine Protein Negative (Negative) Urine Glucose (UA) Negative (Negative) Urine Ketones Negative (Negative) Urine Blood Negative (Negative) Urine Nitrite Negative (Negative) Urine Bilirubin Negative (Negative) Urine Urobilinogen <2.0 (<2.0) mg/dL Ur Leukocyte Esterase Negative (Negative) Disposition Clinical Impression: Abdominal pain Disposition: HOME SELF-CARE Condition: Good Instructions (If sedation given, give patient instructions): Abdominal Pain (ED) Additional Instructions: Please take pain medication as needed. Please follow-up with Gen. surgery in 1- 2 days. Please return here to the emergency department for any worsening symptoms. Is patient prescribed a controlled substance at d/c from ED?: No Referrals: Essence Rodas MD [REFERRING] - 1-2 days Heber Perez MD [Medical Doctor] - 1-2 days Time of Disposition: 12:39
[2020-03-28 10:36] LABS: ALT 21 U/L (4-49); AST 24 U/L (17-59); African American GFR (CKD) >90 (>60 ml/min/1.73 sqM); Albumin 4.3 g/dL (3.5-5.0); Alkaline Phosphatase 50 U/L (38-126); Amylase 33 U/L (30-110); Anion Gap 5 mmol/L; Blood Urea Nitrogen 16 mg/dL (9-20); Calcium 9.3 mg/dL (8.4-10.2); Carbon Dioxide 25 mmol/L (22-30); Chloride 107 mmol/L (98-107); Glucose 85 mg/dL (74-99); Non-African American GFR(CKD) >90 (>60 ml/min/1.73 sqM); Potassium 4.2 mmol/L (3.5-5.1); Sodium 137 mmol/L (137-145); Total Bilirubin 0.2 mg/dL (0.2-1.3); Total Protein 7.1 g/dL (6.3-8.2)
[2020-03-28 10:45] LABS: Appearance,Urine Clear (Clear); Bilirubin,Urine Negative (Negative); Blood,Urine Negative (Negative); Color,Urine Light Yellow; Glucose,Urine (UA) Negative (Negative); Ketones,Urine Negative (Negative); Leukocyte Esterase,Urine Negative (Negative); Nitrite,Urine Negative (Negative); Protein,Urine Negative (Negative); Specific Gravity,Urine 1.017 (1.001-1.035); Urobilinogen,Urine <2.0 mg/dL (<2.0)
--- NOTE | 2020-03-28 10:53 | XR ---
EXAMINATION TYPE: XR KUB DATE OF EXAM: 03/28/2020 10:43 AM CLINICAL HISTORY: Epigastric pain after eating TECHNIQUE: Single upright image of the abdomen is obtained. COMPARISON: None. FINDINGS: Very mild levoscoliosis of the lumbar spine. Osseous structures appear intact and the lung bases are well aerated. No dilated large and small bowel. No suspicious calcification in the abdomen or pelvis. IMPRESSION: Nonobstructive bowel gas pattern.
[2020-03-28] MEDS ORDERED: HYDROmorphone 0.5 MG/0.5 ML SYRINGE IVP STA (11:07)
--- NOTE | 2020-03-28 11:59 | US ---
EXAMINATION TYPE: US gallbladder DATE OF EXAM: 03/28/2020 COMPARISON: NONE CLINICAL HISTORY: pain. RUQ pain, nausea EXAM MEASUREMENTS: Liver Length: 19.1 cm Gallbladder Wall: 0.3 cm CBD: 0.4 cm Right Kidney: 12.2 x 3.9 x 4.9 cm Pancreas: visualized portions appear wnl Liver: wnl Gallbladder: no evidence of stones, size approaches hydropic size of the gallbladder is elongated ga llbladder measures 9.5 cm. Evidence for sonographic Montiel's sign: yes CBD: wnl Right Kidney: cystic area lower pole = 1.2 x 1.3cm IMPRESSION: 1. No sonographic evidence of acute cholecystitis. However the patient complains of a positive sonogr aphic Montiel sign and there is elongation of the gallbladder that can be seen in chronic biliary dysf unction. HIDA scan with CCK could evaluate for biliary dyskinesia. 2. Simple appearing right renal cyst, Bosniak type I, measuring 1.3 cm.
[2020-03-28] MEDS ORDERED: KETOROLAC 30 MG/ML 1 ML VIAL IVP STA (12:25)
[2020-03-28 13:06] VITALS: BP 138/74; PULSE 78; RESP 16; TEMP 97.8
== END 2020-03-28 13:04 | disposition home or self-care (01) ==
LOC: EC 09:38
DX: R10.10 Upper abdominal pain, unspecified (principal); R11.0 Nausea; F17.200 Nicotine dependence, unspecified, uncomplicated; Z88.8 Allergy status to other drugs, medicaments and biological substances
CPT/HCPCS: 36415; 80053; 82150; 83690; 85025; 81003; 74018; 76705; 99284; 96374; 96375 ×2; 96361; J1885; J1170

== ENCOUNTER 2021-09-24 21:49 | Emergency (ER) | payer OTHER ==
--- NOTE | 2021-09-25 01:28 | ED ---
Abdominal Pain HPI - General Chief Complaint: Abdominal Pain Stated Complaint: Hernia Time Seen by Provider: 09/25/21 00:50 Source: patient Mode of arrival: ambulatory Limitations: no limitations - History of Present Illness Initial Comments: This patient is a 31-year-old man who presents to be evaluated for pains in the right lower abdomen/groin. Patient states he is concerned he is developing a hernia. He states that he initially noticed it around a week ago. 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 Patient states that he lifts anything or tenses his abdomen he gets a "goose egg" in the right groin area. Patient denies nausea, vomiting, constipation or problems with passing gas. He states that when he relaxes his abdomen the "goose egg" goes away. Complaint: abdominal pain Onset/Timin -: week(s) Location: RLQ Radiation: none Migration to: no migration Severity: mild Quality: aching Consistency: intermittent Improves With: nothing Worsens With: movement, other Associated Symptoms: denies other symptoms - Related Data Home Medications Medication Instructions Recorded Confirmed Ascorbic Acid [Vitamin C] 500 mg PO DAILY 03/28/20 03/28/20 Ibuprofen [Motrin] 800 mg PO Q8H PRN 03/28/20 03/28/20 Multivit-Min/Folic/Vit K/Lycop 1 tab PO DAILY 03/28/20 03/28/20 [Men's Multivitamin Tablet] Turmeric Root Extract [Turmeric] 500 mg PO DAILY 03/28/20 03/28/20 Previous Rx's Medication Instructions Recorded Acetaminophen-Codeine 300-30mg 1 tab PO Q8H PRN #10 tablet 03/29/20 [Tylenol #3] Allergies Allergy/AdvReac Type Severity Reaction Status Date / Time risperidone [From Risperdal] Allergy Confusion/S Verified 09/24/21 22:46 EIZURES Review of Systems ROS Statement: Those systems with pertinent positive or pertinent negative responses have been documented in the HPI. ROS Other: All systems not noted in ROS Statement are negative. Constitutional: Denies: fever Respiratory: Denies: cough, dyspnea Cardiovascular: Denies: chest pain, palpitations, edema Gastrointestinal: Reports: as per HPI, abdominal pain. Denies: nausea, vomiting, diarrhea, constipation Genitourinary: Denies: dysuria, hematuria, testicular pain, testicular mass Musculoskeletal: Denies: back pain Skin: Denies: rash Past Medical History Past Medical History: Asthma History of Any Multi-Drug Resistant Organisms: None Reported Past Surgical History: Cholecystectomy Past Anesthesia/Blood Transfusion Reactions: No Reported Reaction Past Psychological History: Anxiety, Bipolar, Depression Smoking Status: Current every day smoker Past Alcohol Use History: Occasional Past Drug Use History: Marijuana - Past Family History Father Family Medical History: Chest Pain / Angina, COPD, Coronary Artery Disease (CAD) Additional Family Medical History / Comment(s): Father has history of major depressive disorder and osteoporosis. Mother Family Medical History: No Reported History Sister(s) Family Medical History: No Reported History Brother(s) Family Medical History: No Reported History Daughter(s) Family Medical History: No Reported History General Exam Limitations: no limitations General appearance: alert, in no apparent distress Head exam: Present: atraumatic, normocephalic Eye exam: Present: normal appearance. Absent: scleral icterus, conjunctival injection Respiratory exam: Present: normal lung sounds bilaterally. Absent: respiratory distress, wheezes, rales, rhonchi, stridor Cardiovascular Exam: Present: regular rate, normal rhythm, normal heart sounds. Absent: systolic murmur, diastolic murmur, rubs, gallop GI/Abdominal exam: Present: soft, normal bowel sounds, hernia. Absent: distended, tenderness, guarding, rebound, rigid, mass, pulsatile mass Extremities exam: Present: normal inspection, normal capillary refill. Absent: pedal edema, calf tenderness Neurological exam: Present: alert Skin exam: Present: warm, dry, intact, normal color. Absent: rash Course Vital Signs 09/24/21 22:37 Temperature 97.7 F Pulse Rate 80 Respiratory 19 Rate Blood Pressure 148/76 O2 Sat by Pulse 99 Oximetry Medical Decision Making - Medical Decision Making On exam, the patient does have palpable defect in the abdominal wall. There is no incarceration. No tenderness. We discussed appropriate further care and follow-up. Patient will see the surgeon. We discussed the return parameters discussed no heavy lifting. Disposition Clinical Impression: Hernia Disposition: HOME SELF-CARE Condition: Good Instructions (If sedation given, give patient instructions): Inguinal Hernia (ED) Is patient prescribed a controlled substance at d/c from ED?: No Referrals: None,Stated [Primary Care Provider] - 1-2 days Elisha Salcido MD [STAFF PHYSICIAN] - 1-2 days
[2021-09-25 02:22] VITALS: BP 138/81; PULSE 78; RESP 18; TEMP 97.8
== END 2021-09-25 02:07 | disposition home or self-care (01) ==
LOC: EC 21:49
DX: K46.9 Unspecified abdominal hernia without obstruction or gangrene (principal); J45.909 Unspecified asthma, uncomplicated; F41.9 Anxiety disorder, unspecified; F31.9 Bipolar disorder, unspecified; F17.200 Nicotine dependence, unspecified, uncomplicated; F12.90 Cannabis use, unspecified, uncomplicated; Z72.89 Other problems related to lifestyle
CPT/HCPCS: 99283

== ENCOUNTER 2021-10-04 02:35 | Emergency (ER) | payer OTHER ==
[2021-10-04 02:45] VITALS: BP 125/87; PULSE 86; RESP 16; TEMP 98.5
[2021-10-04 03:30] LABS: Appearance,Urine Clear (Clear); Bilirubin,Urine Negative (Negative); Blood,Urine Negative (Negative); Color,Urine Light Yellow; Glucose,Urine (UA) Negative (Negative); Ketones,Urine Negative (Negative); Leukocyte Esterase,Urine Negative (Negative); Nitrite,Urine Negative (Negative); PH, Urine 5.5 (5.0-8.0); Protein,Urine Negative (Negative); Specific Gravity,Urine 1.007 (1.001-1.035); Urobilinogen,Urine <2.0 mg/dL (<2.0)
[2021-10-04 03:31] LABS: Basophils # (A) 0.1 k/uL (0-0.2); Basophils % (A) 1 %; Eosinophils # (A) 0.4 k/uL (0-0.7); Eosinophils % (A) 4 %; HCT 46.4 % (39.0-53.0); HGB 15.7 gm/dL (13.0-17.5); Lymphocytes # (A) 3.2 k/uL (1.0-4.8); Lymphocytes % (A) 30 %; MCH 29.9 pg (25.0-35.0); MCHC 33.8 g/dL (31.0-37.0); MCV 88.6 fL (80.0-100.0); Mean Platelet Volume 7.8; Monocytes # (A) 0.7 k/uL (0-1.0); Monocytes % (A) 6 %; Neutrophils # (A) 6.2 k/uL (1.3-7.7); Neutrophils % (A) 58 %; Platelet Count 296 k/uL (150-450); RBC 5.24 m/uL (4.30-5.90); RDW 12.3 % (11.5-15.5); WBC 10.7 k/uL (3.8-10.6)
[2021-10-04 03:44] LABS: ALT 22 U/L (4-49); AST 26 U/L (17-59); African American GFR (CKD) >90 (>60 ml/min/1.73 sqM); Albumin 4.8 g/dL (3.5-5.0); Alkaline Phosphatase 65 U/L (38-126); Amylase 41 U/L (30-110); Anion Gap 12 mmol/L; Blood Urea Nitrogen 16 mg/dL (9-20); Calcium 9.9 mg/dL (8.4-10.2); Carbon Dioxide 27 mmol/L (22-30); Chloride 102 mmol/L (98-107); Glucose 95 mg/dL (74-99); Lipase 182 U/L (23-300); Non-African American GFR(CKD) >90 (>60 ml/min/1.73 sqM); Potassium 3.9 mmol/L (3.5-5.1); Sodium 141 mmol/L (137-145); Total Bilirubin 0.3 mg/dL (0.2-1.3); Total Protein 8.1 g/dL (6.3-8.2)
--- NOTE | 2021-10-04 03:56 | CT ---
EXAMINATION TYPE: CT abdomen pelvis wo con DATE OF EXAM: 10/04/2021 COMPARISON: February 23, 2015 HISTORY: right groin pain CT DLP: 429.4 mGycm Automated exposure control for dose reduction was used. Lung bases are clear. There is no pleural effusion. Heart size is normal. There is no pericardial eff usion. Liver spleen stomach pancreas appear intact. The bile ducts are not dilated. There is high density ma terial in the stomach consistent with medication. There is no adrenal mass. Kidneys have normal size and contour. There is 3 mm calculus lateral right kidney. There is no hydronephrosis. Ureters are not dilated. There is no retroperitoneal adenopathy b ladder distends smoothly. There is no inguinal hernia. There is no free fluid in the pelvis. There is no mesenteric edema. There is no ascites or free air. There is no bowel obstruction. Appendi x is lateral and appears normal. Lumbar vertebra have normal alignment. Posterior elements are intact. There is no compression fractur e. Bony pelvis is intact. Hip joints are intact. There is narrowing of L5-S1 disc space. There is 2 c m cortical cyst lower pole left kidney. IMPRESSION: Nonobstructing right renal calculus. Cortical cyst lower pole left kidney is a change compared to old exam. No sign of acute abdomen and pelvis. Normal appendix. No evidence of traumatic injury in the a bdomen pelvis.
--- NOTE | 2021-10-04 04:47 | ED ---
Abdominal Pain HPI - General Chief Complaint: Abdominal Pain Stated Complaint: Abd Pain Time Seen by Provider: 10/04/21 02:50 Source: patient Mode of arrival: ambulatory Limitations: no limitations - Related Data Home Medications Medication Instructions Recorded Confirmed Ascorbic Acid [Vitamin C] 500 mg PO DAILY 03/28/20 03/28/20 Ibuprofen [Motrin] 800 mg PO Q8H PRN 03/28/20 03/28/20 Multivit-Min/Folic/Vit K/Lycop 1 tab PO DAILY 03/28/20 03/28/20 [Men's Multivitamin Tablet] Turmeric Root Extract [Turmeric] 500 mg PO DAILY 03/28/20 03/28/20 Previous Rx's Medication Instructions Recorded Acetaminophen-Codeine 300-30mg 1 tab PO Q8H PRN #10 tablet 03/29/20 [Tylenol #3] Allergies Allergy/AdvReac Type Severity Reaction Status Date / Time risperidone [From Risperdal] Allergy Confusion/S Verified 10/04/21 02:43 EIZURES Review of Systems ROS Statement: Those systems with pertinent positive or pertinent negative responses have been documented in the HPI. ROS Other: All systems not noted in ROS Statement are negative. Past Medical History Past Medical History: Asthma History of Any Multi-Drug Resistant Organisms: None Reported Past Surgical History: Cholecystectomy Past Anesthesia/Blood Transfusion Reactions: No Reported Reaction Past Psychological History: Anxiety, Bipolar, Depression Smoking Status: Current every day smoker Past Alcohol Use History: Occasional Past Drug Use History: Marijuana - Past Family History Father Family Medical History: Chest Pain / Angina, COPD, Coronary Artery Disease (CAD) Additional Family Medical History / Comment(s): Father has history of major depressive disorder and osteoporosis. Mother Family Medical History: No Reported History Sister(s) Family Medical History: No Reported History Brother(s) Family Medical History: No Reported History Daughter(s) Family Medical History: No Reported History General Exam Limitations: no limitations Course Vital Signs 10/04/21 02:43 Temperature 98.5 F Pulse Rate 86 Respiratory 16 Rate Blood Pressure 125/87 O2 Sat by Pulse 98 Oximetry Medical Decision Making - Lab Data Result diagrams: 10/04/21 03:23 10/04/21 03:23 Lab Results 10/04/21 10/04/21 10/04/21 Range/Units 03:14 03:23 03:23 WBC 10.7 H (3.8-10.6) k/uL RBC 5.24 (4.30-5.90) m/uL Hgb 15.7 (13.0-17.5) gm/dL Hct 46.4 (39.0-53.0) % MCV 88.6 (80.0-100.0) fL MCH 29.9 (25.0-35.0) pg MCHC 33.8 (31.0-37.0) g/dL RDW 12.3 (11.5-15.5) % Plt Count 296 (150-450) k/uL MPV 7.8 Neutrophils % 58 % Lymphocytes % 30 % Monocytes % 6 % Eosinophils % 4 % Basophils % 1 % Neutrophils # 6.2 (1.3-7.7) k/uL Lymphocytes # 3.2 (1.0-4.8) k/uL Monocytes # 0.7 (0-1.0) k/uL Eosinophils # 0.4 (0-0.7) k/uL Basophils # 0.1 (0-0.2) k/uL Sodium 141 (137-145) mmol/L Potassium 3.9 (3.5-5.1) mmol/L Chloride 102 (98-107) mmol/L Carbon Dioxide 27 (22-30) mmol/L Anion Gap 12 mmol/L BUN 16 (9-20) mg/dL Creatinine 0.98 (0.66-1.25) mg/dL Est GFR (CKD-EPI)AfAm >90 (>60 ml/min/1.73 sqM) Est GFR (CKD-EPI)NonAf >90 (>60 ml/min/1.73 sqM) Glucose 95 (74-99) mg/dL Calcium 9.9 (8.4-10.2) mg/dL Total Bilirubin 0.3 (0.2-1.3) mg/dL AST 26 (17-59) U/L ALT 22 (4-49) U/L Alkaline Phosphatase 65 (38-126) U/L Total Protein 8.1 (6.3-8.2) g/dL Albumin 4.8 (3.5-5.0) g/dL Amylase 41 (30-110) U/L Lipase 182 (23-300) U/L Urine Color Light Yellow Urine Appearance Clear (Clear) Urine pH 5.5 (5.0-8.0) Ur Specific [place] 1.007 (1.001-1.035) Urine Protein Negative (Negative) Urine Glucose (UA) Negative (Negative) Urine Ketones Negative (Negative) Urine Blood Negative (Negative) Urine Nitrite Negative (Negative) Urine Bilirubin Negative (Negative) Urine Urobilinogen <2.0 (<2.0) mg/dL Ur Leukocyte Esterase Negative (Negative) Disposition Clinical Impression: Inguinal hernia Disposition: HOME SELF-CARE Condition: Good Instructions (If sedation given, give patient instructions): Abdominal Pain (ED), Inguinal Hernia (ED) Is patient prescribed a controlled substance at d/c from ED?: No Referrals: None,Stated [Primary Care Provider] - 1-2 days Tracey Gregorio DO [Doctor of Osteopathic Medicine] - 1-2 days
== END 2021-10-04 04:53 | disposition home or self-care (01) ==
LOC: EC 02:35
DX: K40.90 Unilateral inguinal hernia, without obstruction or gangrene, not specified as recurrent (principal); J45.909 Unspecified asthma, uncomplicated; F41.9 Anxiety disorder, unspecified; F31.9 Bipolar disorder, unspecified; F17.200 Nicotine dependence, unspecified, uncomplicated; F12.90 Cannabis use, unspecified, uncomplicated; Z90.49 Acquired absence of other specified parts of digestive tract
CPT/HCPCS: 36415; 74176; 80053; 81003; 82150; 83690; 85025; 99284

== ENCOUNTER 2022-02-11 17:15 | Emergency (ER) | payer OTHER ==
[2022-02-11 17:21] VITALS: RESP 18
[2022-02-11] MEDS ORDERED: KETOROLAC 15 MG/ML 1 ML VIAL IVP STA (17:44)
[2022-02-11] MEDS ORDERED: SODIUM CHLORIDE 0.9% 1,000 ML IV STA (17:44)
[2022-02-11] MEDS ORDERED: DIAZEPAM 5 MG/ML 2 ML INJ IVP STA (17:45)
--- NOTE | 2022-02-11 17:53 | ED ---
General Adult HPI - General Chief complaint: Back Pain/Injury Stated complaint: back pain Time Seen by Provider: 02/11/22 17:24 Source: patient Mode of arrival: ambulatory Limitations: no limitations - History of Present Illness Initial comments: Dictation was produced using [employer] dictation software. please excuse any grammatical, word or spelling errors. Chief Complaint: 31-year-old male presents emergency Department with back pain History of Present Illness: 31-year-old male who presents emergency department for severe atraumatic back pain. Patient states she's been having symptoms like this for the last 48 hours. He woke up with this pain. Patient states that yesterday he was able to work. He felt some pain in his lower back place a lidocaine patch. He was able to tolerate work however tried to go to work today and his pain was so severe. He is worried that if he does not present a work note that he may loose his job. Patient states it's difficult to walk perform his activities of daily living. Denies any saddle anesthesia. No fever, chills or night sweats. He is told that he has a chipped disc in his back does diagnosed several years ago. Denies any trauma today. No lower extremity symptoms. The ROS documented in this emergency department record has been reviewed and confirmed by me. Those systems with pertinent positive or negative responses have been documented in the HPI. All other systems are other negative and/or noncontributory. PHYSICAL EXAM: General Impression: Alert and oriented x3, acute distress secondary to pain HEENT: Normocephalic atraumatic, extra-ocular movements intact, pupils equal and reactive to light bilaterally, mucous membranes moist. Cardiovascular: Heart regular rate and rhythm Chest: Able to complete full sentences, no retractions, no tachypnea Abdomen: abdomen soft, non-tender, non-distended, no organomegaly Musculoskeletal: Pulses present and equal in all extremities, no peripheral edema Motor: no focal deficits noted Neurological: CN II-XII grossly intact, no focal motor or sensory deficits noted Skin: Intact with no visualized rashes Psych: Normal affect and mood ED course: 31-year-old male presents emergency department for back spasms. His symptoms are atraumatic. Vital signs upon arrival are within acceptable limits. Patient given muscle spasm cocktail. His urine emergency department for approximately 2 hours and 15 minutes. Patient is reevaluated at the bedside at 7:30 PM with improved symptoms. He appears to be much more comfortable. Patient ruled for discharge. 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 Patient provided would work note is told to rest for the next couple days so his syymptoms start to improve. - Related Data Home Medications Medication Instructions Recorded Confirmed Multivit-Min/Folic/Vit K/Lycop 1 tab PO DAILY 03/28/20 02/11/22 [Men's Multivitamin Tablet] Allergies Allergy/AdvReac Type Severity Reaction Status Date / Time risperidone [From Risperdal] Allergy Confusion/S Verified 02/11/22 18:19 EIZURES Review of Systems ROS Statement: Those systems with pertinent positive or pertinent negative responses have been documented in the HPI. ROS Other: All systems not noted in ROS Statement are negative. Past Medical History Past Medical History: Asthma History of Any Multi-Drug Resistant Organisms: None Reported Past Surgical History: Cholecystectomy, Hernia Repair Past Anesthesia/Blood Transfusion Reactions: No Reported Reaction Past Psychological History: Anxiety, Bipolar, Depression Smoking Status: Former smoker Past Alcohol Use History: None Reported Past Drug Use History: Marijuana - Past Family History Father Family Medical History: Chest Pain / Angina, COPD, Coronary Artery Disease (CAD) Additional Family Medical History / Comment(s): Father has history of major depressive disorder and osteoporosis. Mother Family Medical History: No Reported History Sister(s) Family Medical History: No Reported History Brother(s) Family Medical History: No Reported History Daughter(s) Family Medical History: No Reported History General Exam Limitations: no limitations Course Vital Signs 02/11/22 17:16 Temperature 97.9 F Pulse Rate 96 Respiratory 18 Rate Blood Pressure 127/83 O2 Sat by Pulse 99 Oximetry Disposition Clinical Impression: Back spasm Disposition: HOME SELF-CARE Condition: Good Instructions (If sedation given, give patient instructions): Muscle Spasm (ED) Additional Instructions: take over the counter tylenol and/or motrin as needed for back pain. Is patient prescribed a controlled substance at d/c from ED?: No Referrals: Derrick Salinas DO [Doctor of Osteopathic Medicine] - 1-2 days
[2022-02-11 19:55] VITALS: BP 136/85; PULSE 68; TEMP 98.3
== END 2022-02-11 19:55 | disposition home or self-care (01) ==
LOC: EC 17:15
DX: M62.830 Muscle spasm of back (principal); F12.90 Cannabis use, unspecified, uncomplicated; Z87.891 Personal history of nicotine dependence
CPT/HCPCS: 99283; 96374; 96375; 96361; J3360; J1885

== ENCOUNTER 2022-06-05 22:31 | Emergency (ER) | payer OTHER ==
[2022-06-05 22:36] VITALS: BP 146/83; PULSE 98; RESP 22; TEMP 98.2
--- NOTE | 2022-06-05 23:36 | ED ---
General Adult HPI - General Chief complaint: Urogenital Stated complaint: Groin pain Time Seen by Provider: 06/05/22 23:11 Source: patient, RN notes reviewed, old records reviewed Mode of arrival: ambulatory Limitations: no limitations - History of Present Illness Initial comments: Patient presents with right groin pain for one week. States he was seen here on 06/02 and directed to follow up with surgery. Pain states no pain at this time, states he needs a work note for not lifting more than 10 pounds so he doesn't loose his job. States he has an appointment on June [address] Gregorio who performed inguinal hernia repair surgery 8 months ago with mesh. -: week(s) (1) Location: right (groin) Radiation: non-radiation Severity scale (1-10): 8 Consistency: now resolved Worsens with: other (heavy lifting) Associated Symptoms: denies other symptoms - Related Data Home Medications Medication Instructions Recorded Confirmed Multivit-Min/Folic/Vit K/Lycop 1 tab PO DAILY 03/28/20 02/11/22 [Men's Multivitamin Tablet] Allergies Allergy/AdvReac Type Severity Reaction Status Date / Time risperidone [From Risperdal] Allergy Confusion/S Verified 06/05/22 22:35 EIZURES Review of Systems ROS Statement: Those systems with pertinent positive or pertinent negative responses have been documented in the HPI. ROS Other: All systems not noted in ROS Statement are negative. Past Medical History Past Medical History: Asthma Additional Past Medical History / Comment(s): hernia History of Any Multi-Drug Resistant Organisms: None Reported Past Surgical History: Cholecystectomy, Hernia Repair Past Anesthesia/Blood Transfusion Reactions: No Reported Reaction Past Psychological History: Anxiety, Bipolar, Depression Smoking Status: Former smoker Past Alcohol Use History: None Reported Past Drug Use History: Marijuana - Past Family History Father Family Medical History: Chest Pain / Angina, COPD, Coronary Artery Disease (CAD) Additional Family Medical History / Comment(s): Father has history of major depressive disorder and osteoporosis. Mother Family Medical History: No Reported History Sister(s) Family Medical History: No Reported History Brother(s) Family Medical History: No Reported History Daughter(s) Family Medical History: No Reported History General Exam Limitations: no limitations General appearance: alert, in no apparent distress Head exam: Present: atraumatic Eye exam: Present: normal appearance. Absent: scleral icterus, conjunctival injection, periorbital swelling, periorbital tenderness ENT exam: Present: normal exam, normal oropharynx, mucous membranes moist Neck exam: Present: full ROM. Absent: meningismus Respiratory exam: Present: normal lung sounds bilaterally. Absent: respiratory distress Cardiovascular Exam: Present: regular rate, normal rhythm GI/Abdominal exam: Present: soft. Absent: distended, tenderness External exam: Present: other (right groin inguinal pain, no hernia noted) Neurological exam: Present: alert, oriented X3, normal gait Psychiatric exam: Present: normal affect, normal mood Skin exam: Present: warm, dry, intact, normal color. Absent: cyanosis, diaphoretic, petechiae, pallor Course Vital Signs 06/05/22 22:31 Temperature 98.2 F Pulse Rate 98 Respiratory 22 Rate Blood Pressure 146/83 O2 Sat by Pulse 98 Oximetry Medical Decision Making - Medical Decision Making On exam there is no evidence of inguinal hernia. Patient has tenderness right inguinal canal. Was seen on 06/02/22 and directed to f/u with surgery. He has an appointment on 06/[address] Gregorio. Huber pain at this time. He denies any dysuria, no fevers, no testicular pain or swelling. States he just needs a note for work stating no lifting over 10 pounds until he sees surgery. Note was provided. Patient denies pain at this time. Case discussed with Dr. Allred Disposition Clinical Impression: Reducible right inguinal hernia Disposition: HOME SELF-CARE Condition: Good Instructions (If sedation given, give patient instructions): Inguinal Hernia (ED) Additional Instructions: Keep your appointment with your surgeon on June 15 regarding your right inguinal hernia. Do not lift over 10 pounds until cleared by surgery. Return to the emergency room with any new or concerning symptoms including increased pain or inability to reduce hernia. Is patient prescribed a controlled substance at d/c from ED?: No Referrals: None,Stated [Primary Care Provider] - 1-2 days Time of Disposition: 23:36
== END 2022-06-05 23:56 | disposition home or self-care (01) ==
LOC: EC 22:31
DX: K40.31 Unilateral inguinal hernia, with obstruction, without gangrene, recurrent (principal); J45.909 Unspecified asthma, uncomplicated; F41.9 Anxiety disorder, unspecified; F31.9 Bipolar disorder, unspecified; Z87.891 Personal history of nicotine dependence; F12.90 Cannabis use, unspecified, uncomplicated; Z88.8 Allergy status to other drugs, medicaments and biological substances
CPT/HCPCS: 99283

== ENCOUNTER 2022-06-20 23:58 | Emergency (ER) | payer OTHER ==
[2022-06-21 00:31] VITALS: BP 118/83; PULSE 90; RESP 20; TEMP 98.6
[2022-06-21 00:50] LABS: Basophils % (A) 0 %; Eosinophils # (A) 0.3 k/uL (0-0.7); Eosinophils % (A) 2 %; HCT 45.9 % (39.0-53.0); HGB 15.4 gm/dL (13.0-17.5); Lymphocytes # (A) 2.3 k/uL (1.0-4.8); Lymphocytes % (A) 16 %; MCH 28.9 pg (25.0-35.0); MCHC 33.6 g/dL (31.0-37.0); MCV 86.1 fL (80.0-100.0); Mean Platelet Volume 7.7; Monocytes # (A) 0.9 k/uL (0-1.0); Monocytes % (A) 6 %; Neutrophils # (A) 10.5 k/uL (1.3-7.7); Neutrophils % (A) 75 %; Platelet Count 278 k/uL (150-450); RBC 5.34 m/uL (4.30-5.90); RDW 11.6 % (11.5-15.5); WBC 14.1 k/uL (3.8-10.6)
[2022-06-21 00:55] LABS: Partial Thromboplastin Time 25.7 sec (22.0-30.0); Prothrombin Time 10.9 sec (9.0-12.0)
[2022-06-21 00:56] LABS: ALT 22 U/L (4-49); AST 25 U/L (17-59); African American GFR (CKD) >90 (>60 ml/min/1.73 sqM); Albumin 4.9 g/dL (3.5-5.0); Alkaline Phosphatase 61 U/L (38-126); Anion Gap 14 mmol/L; Blood Urea Nitrogen 15 mg/dL (9-20); Calcium 9.5 mg/dL (8.4-10.2); Carbon Dioxide 21 mmol/L (22-30); Chloride 103 mmol/L (98-107); Glucose 94 mg/dL (74-99); Magnesium 1.7 mg/dL (1.6-2.3); Non-African American GFR(CKD) >90 (>60 ml/min/1.73 sqM); Potassium 3.9 mmol/L (3.5-5.1); Sodium 138 mmol/L (137-145); Total Bilirubin 0.5 mg/dL (0.2-1.3); Total Protein 7.5 g/dL (6.3-8.2)
--- NOTE | 2022-06-21 01:13 | XR ---
EXAMINATION TYPE: XR chest 2V DATE OF EXAM: 06/21/2022 COMPARISON: 12/07/2019 HISTORY: Chest pain TECHNIQUE: FINDINGS: Heart and mediastinum are normal. Lungs are clear. There is normal. Bony thorax appears normal. IMPRESSION: Normal chest. No change.
--- NOTE | 2022-06-21 01:18 | XR ---
EXAMINATION TYPE: XR shoulder complete RT DATE OF EXAM: 06/21/2022 COMPARISON: NONE HISTORY: Pain TECHNIQUE: 3 views FINDINGS: I see no fracture nor dislocation. Glenohumeral joint is intact. No pathologic calcificatio n. IMPRESSION: Normal right shoulder.
[2022-06-21] MEDS ORDERED: ACETAMINOPHEN TAB 325 MG TAB PO STA (03:31)
[2022-06-21] MEDS ORDERED: IBUPROFEN 400 MG TAB PO STA (03:31)
--- NOTE | 2022-06-21 03:45 | ED ---
Chest Pain HPI - General Chief Complaint: Chest Pain Stated Complaint: Chest Pain,Arm Weakness Time Seen by Provider: 06/21/22 03:23 Source: patient Mode of arrival: ambulatory Limitations: no limitations - History of Present Illness Initial Comments: This patient is 32-year-old man who presents to be evaluated for right-sided chest pain. He states that he noted that tonight while he was watching television. He states that felt like the muscles were tight and when he tried to take a deep breath or when he tried to raise his right arm there was inc reased pain. No anginal symptoms. MD Complaint: chest pain -: hour(s) Onset: during rest Pain Location: right chest Pain Radiation: RUE Severity: severe Quality: other (Spasm) Consistency: intermittent Improves With: nothing Worsens With: movement - Related Data Home Medications Medication Instructions Recorded Confirmed Multivit-Min/Folic/Vit K/Lycop 1 tab PO DAILY 03/28/20 02/11/22 [Men's Multivitamin Tablet] Allergies Allergy/AdvReac Type Severity Reaction Status Date / Time risperidone [From Risperdal] Allergy Confusion/S Verified 06/21/22 00:32 EIZURES Review of Systems ROS Statement: Those systems with pertinent positive or pertinent negative responses have been documented in the HPI. ROS Other: All systems not noted in ROS Statement are negative. Constitutional: Denies: fever, chills Respiratory: Denies: cough, dyspnea Cardiovascular: Reports: as per HPI, chest pain. Denies: palpitations, orthopnea, edema, syncope Gastrointestinal: Denies: abdominal pain, nausea, vomiting Genitourinary: Denies: dysuria Musculoskeletal: Denies: back pain Skin: Denies: rash Neurological: Denies: headache, weakness, numbness Past Medical History Past Medical History: Asthma Additional Past Medical History / Comment(s): hernia History of Any Multi-Drug Resistant Organisms: None Reported Past Surgical History: Cholecystectomy, Hernia Repair Past Anesthesia/Blood Transfusion Reactions: No Reported Reaction Past Psychological History: Anxiety, Bipolar, Depression Smoking Status: Former smoker Past Alcohol Use History: None Reported Past Drug Use History: Marijuana - Past Family History Father Family Medical History: Chest Pain / Angina, COPD, Coronary Artery Disease (CAD) Additional Family Medical History / Comment(s): Father has history of major depressive disorder and osteoporosis. Mother Family Medical History: No Reported History Sister(s) Family Medical History: No Reported History Brother(s) Family Medical History: No Reported History Daughter(s) Family Medical History: No Reported History General Exam Limitations: no limitations General appearance: alert, in no apparent distress Head exam: Present: atraumatic, normocephalic Eye exam: Present: normal appearance. Absent: scleral icterus, conjunctival injection Neck exam: Present: normal inspection Respiratory exam: Present: normal lung sounds bilaterally, chest wall tenderness. Absent: respiratory distress, wheezes, rales, rhonchi, stridor, accessory muscle use Cardiovascular Exam: Present: regular rate, normal rhythm, normal heart sounds. Absent: systolic murmur, diastolic murmur, rubs, gallop GI/Abdominal exam: Present: soft. Absent: distended, tenderness, guarding, rebound, rigid, mass Extremities exam: Present: normal inspection, normal capillary refill. Absent: pedal edema, calf tenderness Neurological exam: Present: alert Skin exam: Present: warm, dry, intact, normal color. Absent: rash Course Vital Signs 06/21/22 00:28 Temperature 98.6 F Pulse Rate 90 Respiratory 20 Rate Blood Pressure 118/83 O2 Sat by Pulse 97 Oximetry Chest Pain MDM - MDM Patient is 32-year-old man who presents with right-sided chest wall pain and tenderness. Workup is negative. I did want to add a d-dimer as it was a slight increase in pain with inspiration but does appear to be due to chest wall movement and the patient states he does not want to wait for this. We discussed appropriate further care as well as return parameters. Disposition Clinical Impression: Chest wall pain Disposition: Left Against Medical Advice Condition: Undetermined Is patient prescribed a controlled substance at d/c from ED?: No Referrals: None,Stated [Primary Care Provider] - 1-2 days
== END 2022-06-21 04:01 | disposition left against medical advice (07) ==
LOC: EC 23:58
DX: R07.89 Other chest pain (principal); J45.909 Unspecified asthma, uncomplicated; Z87.891 Personal history of nicotine dependence; Z88.8 Allergy status to other drugs, medicaments and biological substances
CPT/HCPCS: 36415; 71046; 80053; 83735; 84484; 85025; 85610; 85730; 93005

== ENCOUNTER 2022-07-04 16:28 | Emergency (ER) | payer OTHER ==
[2022-07-04 16:33] VITALS: BP 124/77; PULSE 97; RESP 16; TEMP 98.7
--- NOTE | 2022-07-04 19:39 | ED ---
URI HPI - General Chief Complaint: Upper Respiratory Infection Stated Complaint: COVID+ Time Seen by Provider: 07/04/22 18:26 Source: patient Mode of arrival: ambulatory Limitations: no limitations - History of Present Illness Initial Comments: Patient is a 32-year-old male with past medical history of asthma who presents to the emergency department seeking COVID-19 antiviral medication. Patient states he was diagnosed is COVID-19 today using an at home test. Patient states with his history of asthma he would like antiviral treatment. Reports dry cough. Denies chest pain and shortness of breath. - Related Data Home Medications Medication Instructions Recorded Confirmed Multivit-Min/Folic/Vit K/Lycop 1 tab PO DAILY 03/28/20 07/04/22 [Men's Multivitamin Tablet] Allergies Allergy/AdvReac Type Severity Reaction Status Date / Time risperidone [From Risperdal] Allergy Confusion/S Verified 07/04/22 19:37 EIZURES Review of Systems ROS Statement: Those systems with pertinent positive or pertinent negative responses have been documented in the HPI. ROS Other: All systems not noted in ROS Statement are negative. Past Medical History Past Medical History: Asthma Additional Past Medical History / Comment(s): hernia History of Any Multi-Drug Resistant Organisms: None Reported Past Surgical History: Cholecystectomy, Hernia Repair Past Anesthesia/Blood Transfusion Reactions: No Reported Reaction Past Psychological History: Anxiety, Bipolar, Depression Smoking Status: Former smoker Past Alcohol Use History: None Reported Past Drug Use History: Marijuana - Past Family History Father Family Medical History: Chest Pain / Angina, COPD, Coronary Artery Disease (CAD) Additional Family Medical History / Comment(s): Father has history of major depressive disorder and osteoporosis. Mother Family Medical History: No Reported History Sister(s) Family Medical History: No Reported History Brother(s) Family Medical History: No Reported History Daughter(s) Family Medical History: No Reported History General Exam Limitations: no limitations General appearance: alert, in no apparent distress Head exam: Present: atraumatic, normocephalic, normal inspection Respiratory exam: Present: normal lung sounds bilaterally. Absent: respiratory distress, wheezes, rales, rhonchi, stridor Cardiovascular Exam: Present: regular rate, normal rhythm, normal heart sounds. Absent: systolic murmur, diastolic murmur, rubs, gallop, clicks Neurological exam: Present: alert, oriented X3, CN II-XII intact Psychiatric exam: Present: normal affect, normal mood Skin exam: Present: warm, dry, intact, normal color. Absent: rash Course Vital Signs 07/04/22 16:29 Temperature 98.7 F Pulse Rate 97 Respiratory 16 Rate Blood Pressure 124/77 O2 Sat by Pulse 98 Oximetry Medical Decision Making - Medical Decision Making This is a 32-year-old with recent COVID-19 diagnosis taking antiviral medication. COVID-19 is detected. Patient will be discharged with Paxlovid prescription. Dr. Chambers is my attending. - Lab Data Lab Results 07/04/22 Range/Units 19:01 Coronavirus (PCR) Detected A (Not Detectd) Disposition Clinical Impression: COVID-19, History of asthma Disposition: HOME SELF-CARE Condition: Good Instructions (If sedation given, give patient instructions): Coronavirus Disease 2019 (COVID-19) Additional Instructions: Take Paxlovid medication to pharmacy. Quarantine at home for 5 days and until fever free for 24 hours without use of antifever medication. Follow-up with primary care provider in one to 2 days. Return to the emergency department experience new, concerning, or worsening symptoms; Is patient prescribed a controlled substance at d/c from ED?: No Referrals: Gold Maier MD [Primary Care Provider] - 1-2 days Time of Disposition: 19:38
== END 2022-07-04 20:04 | disposition home or self-care (01) ==
LOC: EC 16:28
DX: U07.1 COVID-19 (principal); J45.909 Unspecified asthma, uncomplicated; F41.9 Anxiety disorder, unspecified; F31.9 Bipolar disorder, unspecified; F12.90 Cannabis use, unspecified, uncomplicated; Z87.891 Personal history of nicotine dependence; Z88.8 Allergy status to other drugs, medicaments and biological substances
CPT/HCPCS: 87635; 99283

== ENCOUNTER 2022-09-02 14:45 | Emergency (ER) | payer BC, OTHER ==
[2022-09-02 14:52] VITALS: BP 125/71; PULSE 100; RESP 20; TEMP 99.1
--- NOTE | 2022-09-02 15:20 | XR ---
EXAMINATION TYPE: XR chest 2V DATE OF EXAM: 09/02/2022 COMPARISON: Chest x-ray June 21, 2022 HISTORY: Cough and fever. TECHNIQUE: Frontal and lateral views of the chest are obtained. FINDINGS: There is no suspicious focal air space opacity, pleural effusion, or pneumothorax seen. T he cardiac silhouette size is stable and within normal limits. The osseous structures are intact. IMPRESSION: No acute pulmonary process.
[2022-09-02] MEDS ORDERED: ONDANSETRON ODT 4 MG TAB PO STA (16:35)
[2022-09-02] MEDS ORDERED: ACETAMINOPHEN TAB 500 MG TAB PO STA (16:35)
--- NOTE | 2022-09-02 16:35 | ED ---
URI HPI - General Chief Complaint: Upper Respiratory Infection Stated Complaint: Fever,Chest pain Time Seen by Provider: 09/02/22 16:10 Source: patient, family, RN notes reviewed, old records reviewed Mode of arrival: ambulatory Limitations: no limitations - History of Present Illness Initial Comments: Well-appearing 32-year-old male presents ambulatory to the emergency room with complaints of fever, cough and vomiting that started last night. Woke up this morning with a fever of 105 and multiple episodes of vomiting. States does have a son that has been sick for the past week but is improving. Patient also having his daughter seen for similar symptoms. States he does have history of asthma with hospitalizations but no intubations. Does smoke marijuana daily, denies any tobacco use. MD Complaint: fever, cough -: days(s) (2) Severity scale (1-10): 0 Improves With: other (Albuterol ASA) Associated Symptoms: cough, shortness of breath, nausea, vomiting Treatments Prior to Arrival: Aspirin, other (albuterol) - Related Data Home Medications Medication Instructions Recorded Confirmed Multivit-Min/Folic/Vit K/Lycop 1 tab PO DAILY 03/28/20 07/04/22 [Men's Multivitamin Tablet] Previous Rx's Medication Instructions Recorded Albuterol Inhaler [Ventolin Hfa 1 - 2 puff INHALATION Q6H PRN #1 09/02/22 Inhaler] unit Ondansetron Odt [Zofran Odt] 4 mg PO Q8HR PRN #10 tab 09/02/22 Oseltamivir [Tamiflu] 75 mg PO Q12HR #10 cap 09/02/22 predniSONE 50 mg PO DAILY #5 tab 09/02/22 Allergies Allergy/AdvReac Type Severity Reaction Status Date / Time risperidone [From Risperdal] Allergy Confusion/S Verified 09/02/22 14:52 EIZURES Review of Systems ROS Statement: Those systems with pertinent positive or pertinent negative responses have been documented in the HPI. ROS Other: All systems not noted in ROS Statement are negative. Past Medical History Past Medical History: Asthma Additional Past Medical History / Comment(s): hernia History of Any Multi-Drug Resistant Organisms: None Reported Past Surgical History: Cholecystectomy, Hernia Repair Past Anesthesia/Blood Transfusion Reactions: No Reported Reaction Past Psychological History: Anxiety, Bipolar, Depression Smoking Status: Former smoker Past Alcohol Use History: None Reported Past Drug Use History: Marijuana - Past Family History Father Family Medical History: Chest Pain / Angina, COPD, Coronary Artery Disease (CAD) Additional Family Medical History / Comment(s): Father has history of major depressive disorder and osteoporosis. Mother Family Medical History: No Reported History Sister(s) Family Medical History: No Reported History Brother(s) Family Medical History: No Reported History Daughter(s) Family Medical History: No Reported History General Exam Limitations: no limitations General appearance: alert, in no apparent distress Head exam: Present: atraumatic, normocephalic, normal inspection Eye exam: Present: normal appearance. Absent: scleral icterus, conjunctival injection, periorbital swelling, periorbital tenderness ENT exam: Present: normal oropharynx, mucous membranes moist Neck exam: Present: normal inspection, full ROM. Absent: tenderness, meningismus, lymphadenopathy, thyromegaly Respiratory exam: Present: normal lung sounds bilaterally. Absent: respiratory distress, wheezes, rales, rhonchi, stridor, chest wall tenderness, accessory muscle use Cardiovascular Exam: Present: regular rate GI/Abdominal exam: Present: soft. Absent: distended, tenderness, guarding, rebound, rigid Extremities exam: Present: full ROM, normal capillary refill. Absent: tenderness, pedal edema, calf tenderness Neurological exam: Present: alert, oriented X3, normal gait Psychiatric exam: Present: normal affect, normal mood Skin exam: Present: warm, dry, normal color. Absent: cyanosis, diaphoretic, petechiae, pallor Course Vital Signs 09/02/22 09/02/22 14:50 15:52 Temperature 99.1 F Pulse Rate 100 Respiratory 20 20 Rate Blood Pressure 125/71 O2 Sat by Pulse 97 Oximetry Medical Decision Making - Medical Decision Making Patient presents with fever, cough and vomiting since last night. Daughter positive for influenza and RSV. He is positive for Influenza A today. Patient offered Tamiflu and is agreeable. He does have a history of asthma and is almost out of albuterol therefore he was prescribed albuterol and prednisone. Lung sounds are clear to auscultation, oxygen saturation 97%, no previous intubations, no daily medications. He was also prescribed Zofran for nausea/vomiting. Directed to follow up with his primary care doctor and return to the emergency room with any new or concerning symptoms. Case discussed with Dr. Krishnan. - Lab Data Lab Results 09/02/22 09/02/22 Range/Units 14:55 14:55 Coronavirus (PCR) Not Detected (Not Detectd) Influenza Type A RNA Detected H (Not Detectd) Influenza Type B (PCR) Not Detected (Not Detectd) Disposition Clinical Impression: Influenza A Disposition: HOME SELF-CARE Condition: Good Instructions (If sedation given, give patient instructions): Influenza (ED), Upper Respiratory Infection (ED) Additional Instructions: Take medications as prescribed and follow-up with the primary care doctor in 2 weeks. Prescriptions: predniSONE 50 mg PO DAILY #5 tab Oseltamivir [Tamiflu] 75 mg PO Q12HR #10 cap Albuterol Inhaler [Ventolin Hfa Inhaler] 1 - 2 puff INHALATION Q6H PRN #1 unit PRN Reason: Dyspnea Ondansetron Odt [Zofran Odt] 4 mg PO Q8HR PRN #10 tab PRN Reason: Nausea Is patient prescribed a controlled substance at d/c from ED?: No Referrals: Gold Maier MD [Primary Care Provider] - 1-2 days Time of Disposition: 16:34
== END 2022-09-02 17:30 | disposition home or self-care (01) ==
LOC: EC 14:45
DX: J10.1 Influenza due to other identified influenza virus with other respiratory manifestations (principal); J45.909 Unspecified asthma, uncomplicated; F41.9 Anxiety disorder, unspecified; F12.90 Cannabis use, unspecified, uncomplicated; F31.9 Bipolar disorder, unspecified; Z20.822 Contact with and (suspected) exposure to COVID-19; Z87.891 Personal history of nicotine dependence; Z88.8 Allergy status to other drugs, medicaments and biological substances; Z79.51 Long term (current) use of inhaled steroids; Z79.899 Other long term (current) drug therapy
CPT/HCPCS: 71046; 87502; 87635; 99285

== ENCOUNTER 2023-06-04 14:16 | Emergency (ER) | payer OTHER ==
[2023-06-04] MEDS ORDERED: IBUPROFEN 800 MG TAB PO STA (16:43)
--- NOTE | 2023-06-04 16:46 | ED ---
Extremity Problem HPI - General Chief complaint: Extremity Problem,Nontraumatic Stated complaint: Left arm pain Time Seen by Provider: 06/04/23 15:51 Source: patient, RN notes reviewed Mode of arrival: ambulatory Limitations: no limitations - History of Present Illness Initial comments: 33-year-old male with no significant past medical history presents to the emergency department with a chief complaint of left wrist pain. Patient works as a transit driver and reports sudden onset left wrist pain that started yesterday while working. He tried to work through the pain however his symptoms have progressively worse. He describes them as a burning. He tried one dose of Tylenol with mild symptomatic relief. He denies any known trauma or injury. She denies any numbness, tingling, weakness in the extremity. he's never had this before - Related Data Previous Rx's Medication Instructions Recorded Lidocaine 5% Patch [Lidoderm 5% 1 patch TOPICAL DAILY #3 patch 06/04/23 Patch] Allergies Allergy/AdvReac Type Severity Reaction Status Date / Time risperidone [From Risperdal] AdvReac Confusion/S Verified 06/04/23 17:22 EIZURES Review of Systems ROS Statement: Those systems with pertinent positive or pertinent negative responses have been documented in the HPI. ROS Other: All systems not noted in ROS Statement are negative. Past Medical History Past Medical History: Asthma Additional Past Medical History / Comment(s): hernia History of Any Multi-Drug Resistant Organisms: None Reported Past Surgical History: Cholecystectomy, Hernia Repair Past Anesthesia/Blood Transfusion Reactions: No Reported Reaction Past Psychological History: Anxiety, Bipolar, Depression Smoking Status: Former smoker Past Alcohol Use History: None Reported Past Drug Use History: Marijuana - Past Family History Father Family Medical History: Chest Pain / Angina, COPD, Coronary Artery Disease (CAD) Additional Family Medical History / Comment(s): Father has history of major depressive disorder and osteoporosis. Mother Family Medical History: No Reported History Sister(s) Family Medical History: No Reported History Brother(s) Family Medical History: No Reported History Daughter(s) Family Medical History: No Reported History General Exam - General Exam Comments Initial Comments: General: Alert, in no acute distress Head: atraumatic normocephalic. Eyes PERRL, EOMI intact, mucous membranes moist Respiratory: Lungs clear to auscultation bilaterally Cardiovascular: Heart rate regular rate and rhythm Abdominal: Soft without guarding or rebound Extremities: Normal inspection with full range of motion and normal capillary refill, left wrist without marked ecchymosis, edema, erythema. No active range of motion secondary to pain. 2+ radial pulses. Distal neurovascular intact. Neuroogic: alert and oriented 3, CN II-XII intact, able to ambulate with steady gait Skin: warm dry and intact with normal color Limitations: no limitations Course Vital Signs 06/04/23 14:17 Temperature 98 F Pulse Rate 117 H Respiratory 16 Rate Blood Pressure 139/85 O2 Sat by Pulse 95 Oximetry Medical Decision Making - Medical Decision Making Was pt. sent in by a medical professional or institution (, [facility], TRAIN DISPATCHER, urgent care, hospital, or [facility]...) When possible be specific @ -[No] Did you speak to anyone other than the patient for history (EMS, parent, family, police, friend...)? What history was obtained from this source @ -[No] Did you review nursing and triage notes (agree or disagree)? Why? @ -[I reviewed and agree with nursing and triage notes] Were old charts reviewed (outside hosp., previous admission, EMS record, old EKG, old radiological studies, urgent care reports/EKG's, [facility] records)? Report findings @ -[No old charts were reviewed] Differential Diagnosis (chest pain, altered mental status, abdominal pain women, abdominal pain men, vaginal bleeding, weakness, fever, dyspnea, syncope, headache, dizziness, GI bleed, back pain, seizure, CVA, palpatations, mental health, musculoskeletal)? @ -[not applicable] EKG interpreted by me (3pts min.). @ -[As above] X-rays interpreted by me (1pt min.). @ -Left hand x-ray is negative for any evidence of fracture dislocation no marked swelling CT interpreted by me (1pt min.). @ -[None done] U/S interpreted by me (1pt. min.). @ -[None done] What testing was considered but not performed or refused? (CT, X-rays, U/S, labs)? Why? @ -[None] What meds were considered but not given or refused? Why? @ -[None] Did you discuss the management of the patient with other professionals (professionals i.e. , PA, TRAIN DISPATCHER, lab, RT, psych nurse, social and political studies professor, industrial refrigeration mechanic, teacher, operations officer trust department, case liner)? Give summary @ -[No] Was smoking cessation discussed for >3mins.? @ -[No] Was critical care preformed (if so, how long)? @ -[No] Were there social determinants of health that impacted care today? How? (Homelessness, low income, unemployed, alcoholism, drug addiction, transportation, low edu. Level, literacy, decrease access to med. care, retirement, rehab)? @ -[No] Was there de-escalation of care discussed even if they declined (Discuss DNR or withdrawal of care, Hospice)? DNR status @ -[No] What co-morbidities impacted this encounter? (DM, HTN, Smoking, COPD, CAD, Cancer, CVA, ARF, Chemo, Hep., AIDS, mental health diagnosis, sleep apnea, morbid obesity)? @ -[None] Was patient admitted / discharged? Hospital course, mention meds given and route, prescriptions, significant lab abnormalities, going to OR and other pertinent info. @ -Discharged. This is a pleasant 33-year-old male who presents the emergency department with a chief complaint Left wrist pain. Patient had a thorough history and physical exam performed on the emergency department. Physical exam is essentially unremarkable. Patient symptomatically bradycardic. Lungs clear to auscultation bilaterally abdomen soft with mild tenderness. Left wrist without any obvious deformity. No erythema, edema. Attempted range of motion secondary to pain. 2+ radial pulses bilaterally. Distal neurovascularly intact. Patient had lab work and imaging performed which were essentially unremarkable. I discussed results in detail with the patient verbalized understanding all questions were addressed. She was given Motrin and Lidoderm patch and provided a work excuse with mild symptomatic relief. She is agreeable with the plan for discharge. All questions were addressed with recommended close follow-up with PCP in 1-2 days.. Patient discharged in stable condition. Case discussed with Dr. Allred Serena who agrees with plan of care Undiagnosed new problem with uncertain prognosis? @ -[No] Drug Therapy requiring intensive monitoring for toxicity (Heparin, Nitro, Insulin, Cardizem)? @ -[No] Were any procedures done? @ -[No] Diagnosis/symptom? @ -Left wrist pain Acute, or Chronic, or Acute on Chronic? @ -Acute Uncomplicated (without systemic symptoms) or Complicated (systemic symptoms)? @ -Uncomplicated Side effects of treatment? @ -[No] Exacerbation, Progression, or Severe Exacerbation? @ -[No] Poses a threat to life or bodily function? How? (Chest pain, [place], [place], pneumonia, PE, COPD, DKA, ARF, appy, cholecystitis, CVA, Diverticulitis, Homicidal, Suicidal, threat to staff... and all critical care pts) @ -Low likelihood Disposition Clinical Impression: Left wrist pain, Tendonitis Disposition: HOME SELF-CARE Condition: Stable Additional Instructions: Please take Tylenol and Motrin for pain Please return to the nearest emergency department if symptoms worsen or persist Prescriptions: Lidocaine 5% Patch [Lidoderm 5% Patch] 1 patch TOPICAL DAILY #3 patch Is patient prescribed a controlled substance at d/c from ED?: No Referrals: None,Stated [Primary Care Provider] - 1-2 days Time of Disposition: 17:38
[2023-06-04] MEDS ORDERED: LIDOCAINE 5% PATCH TOPICAL SCH (17:00)
--- NOTE | 2023-06-04 17:25 | XR ---
EXAMINATION TYPE: XR wrist complete LT DATE OF EXAM: 06/04/2023 CLINICAL HISTORY: pain TECHNIQUE: Frontal, lateral and oblique images of the left wrist are obtained. COMPARISON: None. FINDINGS: There is no acute fracture/dislocation evident. The joint spaces appear within normal rendon its. The overlying soft tissue appears unremarkable. IMPRESSION: There is no acute fracture or dislocation seen. ICD 10 NO FRACTURE, INITIAL EVALUATION
[2023-06-04 18:08] VITALS: BP 130/82; PULSE 92; RESP 20; TEMP 97.9
== END 2023-06-04 18:00 | disposition home or self-care (01) ==
LOC: EC 14:16
DX: M77.9 Enthesopathy, unspecified (principal); R00.1 Bradycardia, unspecified; R10.819 Abdominal tenderness, unspecified site; J45.909 Unspecified asthma, uncomplicated; F12.90 Cannabis use, unspecified, uncomplicated; Z87.891 Personal history of nicotine dependence; Z88.8 Allergy status to other drugs, medicaments and biological substances
CPT/HCPCS: 99283